=== PATIENT | female | born 1980 | race Caucasian/White ===

== ENCOUNTER 2018-05-24 14:24 | Emergency (ER) | payer BC ==
[~2018-05-24] VITALS: Ht 165.1 cm; Wt 99.8 kg
[~2018-05-24 14:24] MED LIST: ESCI20TA PO; LACT1CAP65 PO; SACC250C PO
--- NOTE | 2018-05-24 14:40 | NUR ---
pt requesting pain medicine before the zofran, because she would throw up zofran,iv, before taking pain med. pt said that dilaudid was given previous time and worked well for her. notified
[2018-05-24] MEDS ORDERED: HYDROMORPHONE 1 MG/1 ML DISP.SYRIN IV ONE (14:45)
[2018-05-24] MEDS ORDERED: IV NORMAL SALINE 1000 ML BAG IV ONE (14:45)
[2018-05-24] MEDS ORDERED: ONDANSETRON 4 MG/2 ML VIAL IV ONE (14:45)
[2018-05-24 14:51] LABS: BASOPHILS # (AUTO) 0.1 K/uL (0.0-8.0); BASOPHILS % (AUTO) 0.3 % (0.0-2.0); EOSINOPHILS % (AUTO) 0.1 % (0.0-7.0); HEMATOCRIT 41.9 % (31.2-41.9); HEMOGLOBIN 14.1 g/dL (10.9-14.3); LYMPHOCYTES # (AUTO) 2.5 K/uL (20.0-40.0); LYMPHOCYTES % (AUTO) 9.5 % (20.5-51.5); MEAN CORPUSCULAR HEMOGLOBIN 27.8 uug (24.7-32.8); MEAN CORPUSCULAR HGB CONC 34 g/dL (32.3-35.6); MEAN CORPUSCULAR VOLUME 82.4 fL (75.5-95.3); MONOCYTES # (AUTO) 1.3 K/uL (2.0-10.0); MONOCYTES % (AUTO) 4.8 % (0.0-11.0); NEUTROPHILS # (AUTO) 22.4 K/uL (1.8-8.9); NEUTROPHILS % (AUTO) 85.3 % (38.5-71.5); PLATELET COUNT (AUTO) 368 K/uL (179-408); RED BLOOD CELL COUNT(AUTO) 5.08 MIL/uL (3.63-4.92)
[2018-05-24 15:03] LABS: CREATININE 0.6 mg/dL (0.6-1.3); POTASSIUM 3.2 mmol/L (3.5-5.1); WHITE BLOOD COUNT (AUTO) 26.3 K/uL (3.8-11.8)
[2018-05-24 15:09] LABS: BILIRUBIN,DIRECT 0.1 mg/dL (0.0-0.2); BILIRUBIN,TOTAL 1.1 mg/dL (0.2-1.0); TOTAL PROTEIN, SERUM 8.8 g/dL (6.4-8.2)
[2018-05-24] MEDS ORDERED: HYDROMORPHONE 2 MG/1 ML DISP.SYRIN ONE (15:24)
[2018-05-24] MEDS ORDERED: ONDANSETRON 4 MG/2 ML VIAL ONE (15:25)
[2018-05-24] MEDS ORDERED: PANTOPRAZOLE SODIUM 40 MG VIAL IV ONE (15:30)
[2018-05-24] MEDS ORDERED: NORMAL SALINE FLUSH 10 ML DISP.SYRIN ONE (15:30)
[2018-05-24] MEDS ORDERED: IOHEXOL 300MG/ML 100 ML INFUS..BTL ONE (15:30)
[2018-05-24] MEDS ORDERED: IV NORMAL SALINE 250 ML IV ONE (15:30)
[2018-05-24] MEDS ORDERED: SWABABLE VALVE TRANSFER SET EA MC ONE (15:30)
[2018-05-24] MEDS ORDERED: PANTOPRAZOLE SODIUM 40 MG VIAL ONE (15:50)
--- NOTE | 2018-05-24 16:25 | NUR ---
Patient discharged to home in stable conditon. Written and verbal after care instructions given. Patient verbalizes understanding of instructions.pt walks in steady gait. pt says feels better.deneis nausea or pain
[2018-05-24 16:26] VITALS: BP 131/89
[2018-05-25] MEDS ORDERED: FAMO-132 PO (07:21)
== END 2018-05-24 16:27 | disposition home or self-care (01) ==
LOC: ER 14:27
DX: R10.13 Epigastric pain (principal); R11.2 Nausea with vomiting, unspecified; D72.829 Elevated white blood cell count, unspecified; F12.10 Cannabis abuse, uncomplicated; Z88.2 Allergy status to sulfonamides
CPT/HCPCS: 36415; 74177; 80048; 80076; 83690; 84703; 85025; 96361; 96374 ×2; 96375; 99285; A4663; C9113; J1170; J2405; J3490; J7050; Q9967; J7030

== ENCOUNTER 2018-05-25 07:09 | Emergency (ER) | payer BC ==
[~2018-05-25] VITALS: Ht 165.1 cm; Wt 99.8 kg
[2018-05-25] MEDS ORDERED: FAMO-132 PO (07:21)
[2018-05-25] MEDS ORDERED: PANTOPRAZOLE SODIUM 40 MG VIAL IV ONE (07:30)
[2018-05-25] MEDS ORDERED: ONDANSETRON 4 MG/2 ML VIAL IV ONE ×2 (07:30→08:30)
[2018-05-25] MEDS ORDERED: HYDROMORPHONE 1 MG/1 ML DISP.SYRIN IV ONE ×2 (07:30→08:30)
[2018-05-25] MEDS ORDERED: IV NORMAL SALINE 1000 ML BAG IV ONE ×2 (07:30→09:00)
[2018-05-25] MEDS ORDERED: ONDANSETRON 4 MG/2 ML VIAL ONE ×2 (07:38→08:45)
[2018-05-25] MEDS ORDERED: HYDROMORPHONE 2 MG/1 ML DISP.SYRIN ONE ×2 (07:38→08:44)
[2018-05-25] MEDS ORDERED: PANTOPRAZOLE SODIUM 40 MG VIAL ONE (07:39)
--- NOTE | 2018-05-25 07:49 | NUR ---
IV PLACED, MEDS ADMIN, 1KL 0.9NS BOLUS INFUSING, ACCU OVOFZ=[id number], DR MAURICIO AWARE.
[2018-05-25] MEDS ORDERED: IBUPROFEN 600 MG TABLET PO ONE (08:00)
[2018-05-25] MEDS ORDERED: IBUPROFEN 600 MG TABLET ONE (08:00)
[2018-05-25] MEDS ORDERED: MAG HYDROX/AL HYDROX/SIMETH 30 ML LIQUID UDC PO ONE (10:30)
[2018-05-25] MEDS ORDERED: MAG HYDROX/AL HYDROX/SIMETH 30 ML LIQUID UDC ONE (10:31)
--- NOTE | 2018-05-25 10:32 | NUR ---
MSE COMPLETED, IV D/C'D INTACT. PT D/XC'D HOME, ACI/RX X2 GIVEN,PT AMBULATED W/O DIFF/TOOK ALL BELONGINGS.
[2018-05-25 10:34] VITALS: BP 140/90
[2018-05-26] MEDS ORDERED: NORT25CA PO (12:56)
== END 2018-05-25 10:35 | disposition home or self-care (01) ==
LOC: ER 07:09
DX: K29.70 Gastritis, unspecified, without bleeding (principal); F12.10 Cannabis abuse, uncomplicated; Z90.49 Acquired absence of other specified parts of digestive tract; Z88.5 Allergy status to narcotic agent
CPT/HCPCS: 82962; 96361; 96374; 96375; 96376; 99284; A4663; C9113; J1170 ×2; J2405 ×2; J7030 ×2

== ENCOUNTER 2018-05-26 10:25 | Inpatient (IN) | payer BC ==
[~2018-05-26] VITALS: Ht 165.1 cm; Wt 99.8 kg
[~2018-05-26 10:25] MED LIST changes: +FAMO-132 PO
[2018-05-26] MEDS ORDERED: ONDANSETRON 4 MG/2 ML VIAL ONE (11:06)
[2018-05-26] MEDS ORDERED: HYDROMORPHONE 2 MG/1 ML DISP.SYRIN ONE (11:06)
[2018-05-26] MEDS ORDERED: ONDANSETRON 4 MG/2 ML VIAL IM ONE (11:15)
[2018-05-26] MEDS ORDERED: HYDROMORPHONE 1 MG/1 ML DISP.SYRIN IM ONE (11:15)
[2018-05-26 11:36] LABS: BASOPHILS % (AUTO) 0.3 % (0.0-2.0); EOSINOPHILS % (AUTO) 0.3 % (0.0-7.0); HEMATOCRIT 37.2 % (31.2-41.9); HEMOGLOBIN 12.5 g/dL (10.9-14.3); LYMPHOCYTES # (AUTO) 2.7 K/uL (20.0-40.0); LYMPHOCYTES % (AUTO) 15.4 % (20.5-51.5); MEAN CORPUSCULAR HEMOGLOBIN 27.3 uug (24.7-32.8); MEAN CORPUSCULAR HGB CONC 34 g/dL (32.3-35.6); MEAN CORPUSCULAR VOLUME 81.1 fL (75.5-95.3); MONOCYTES # (AUTO) 0.9 K/uL (2.0-10.0); MONOCYTES % (AUTO) 5.4 % (0.0-11.0); NEUTROPHILS # (AUTO) 13.6 K/uL (1.8-8.9); NEUTROPHILS % (AUTO) 78.6 % (38.5-71.5); PLATELET COUNT (AUTO) 281 K/uL (179-408); RED BLOOD CELL COUNT(AUTO) 4.58 MIL/uL (3.63-4.92); WHITE BLOOD COUNT (AUTO) 17.3 K/uL (3.8-11.8)
[2018-05-26 11:43] LABS: CARBON DIOXIDE 24 mmol/L (21-32); CHLORIDE 98 mmol/L (98-107); CREATININE 0.5 mg/dL (0.6-1.3); GLUCOSE 175 mg/dL (74-106); UREA NITROGEN, BLOOD 8 mg/dL (7-18)
[2018-05-26 11:44] LABS: POTASSIUM 2.7 mmol/L (3.5-5.1)
[2018-05-26] MEDS ORDERED: PANTOPRAZOLE SODIUM IV 80 MG in IV DEXTROSE 5% 100 ML IV ONE (11:45)
[2018-05-26] MEDS ORDERED: IV NORMAL SALINE 1000 ML BAG IV ONE (11:45)
[2018-05-26 11:57] LABS: ALANINE AMINOTRANSFERASE 25 U/L (14-59); ALKALINE PHOSPHATASE 75 U/L (50-136); ASPARTATE AMINOTRANSFERASE 20 U/L (15-37); BILIRUBIN,DIRECT 0.2 mg/dL (0.0-0.2); BILIRUBIN,TOTAL 1.1 mg/dL (0.2-1.0); LIPASE 131 U/L (73-393); TOTAL PROTEIN, SERUM 7.6 g/dL (6.4-8.2)
[2018-05-26] MEDS ORDERED: PANTOPRAZOLE SODIUM 40 MG VIAL ONE (12:19)
[2018-05-26] MEDS ORDERED: POTASSIUM CHLORIDE 50 ML ONE (12:19)
[2018-05-26] MEDS: POTASSIUM CHLORIDE 50 ML IV SCH ×2 (12:33→12:45)
--- NOTE | 2018-05-26 12:34 | NUR ---
IV PLACED, LAB DELANEY BLOOD EARLIER, IV FLUIDS INFUSING, MRSA NARES ORDERED SENT.
[2018-05-26] MEDS ORDERED: NORT25CA PO (12:56)
--- NOTE | 2018-05-26 13:09 | NUR ---
MSE COMPLETED, ALL MD ORSRS COMPLETED, PT TO RM 221, BELONGINGS LIST DONE.
[2018-05-26] MEDS ORDERED: ONDANSETRON 4 MG/2 ML VIAL IV PRN (13:15)
[2018-05-26] MEDS ORDERED: ACETAMINOPHEN 325 MG TABLET PO PRN (13:15)
[2018-05-26 13:25] VITALS: BP 136/77
--- NOTE | 2018-05-26 13:25 | NUR ---
Admitted 37 y/o female to Tele for Hypokalemia, Intractable Vomiting, and Gastritis. Pt A&O x4. On RA, no SOB noted. SR on Tele, 70s. No acute distress noted. Continent and ambulatory with BRP. No skin issues identified. R hand 22g IV access in place and patent, no s/s of complications noted to site. Denies epigastric pain at this time. Denies nausea at this time. Oriented pt to unit, room, and call light system. Verbalized understanding. Answered all questions. Will monitor closely.
--- NOTE | 2018-05-26 15:00 | NUR ---
Telephone call to pharmacy. Spoke with Corrie to follow up on medication verification. Per Corrie, need to have test results first. Urine specimen sent to lab.
[2018-05-26 15:43] VITALS: BP 119/74
[2018-05-26 15:48] LABS: *URINE HCG, QUAL NEGATIVE (NEGATIVE)
[2018-05-26] MEDS ORDERED: MAGNESIUM SULFATE/D5W 100 ML IV SCH (15:50)
[2018-05-26] MEDS: KETOROLAC TROMETHAMINE 30 MG INJ IVP PRN ×2 (15:58→23:05)
[2018-05-26] MEDS: IV NS 1000 ML 1,000 ML IV PRN ×2 (15:59→22:55)
--- NOTE | 2018-05-26 20:00 | NUR ---
RECEIVED PATIENT AWAKE IN BED. A/O X4. DENIES PAIN OR DISCOMFORT. NO RESP. DISTRESS NOTED. IVF INFUSING WELL TO LEFT FA #20 GAUGE. VS WNL. CALL LIGHT IN REACH. ALL NEEDS ATTENDED, WILL CONTINUE TO MONITOR AND ASSESS.
[2018-05-26 20:10] VITALS: BP 140/83
[2018-05-26] MEDS ORDERED: NORTRIPTYLINE HCL 25 MG CAPSULE PO SCH (21:00)
[2018-05-26] MEDS ORDERED: ESCITALOPRAM OXALATE 10 MG TABLET PO SCH (21:00)
[2018-05-27 01:00] VITALS: BP 139/72
[2018-05-27 04:42] VITALS: BP 137/82
[2018-05-27 06:16] LABS: BASOPHILS % (AUTO) 0.3 % (0.0-2.0); EOSINOPHILS # (AUTO) 0.1 K/uL (0.0-0.7); HEMATOCRIT 34.6 % (31.2-41.9); HEMOGLOBIN 11.8 g/dL (10.9-14.3); LYMPHOCYTES # (AUTO) 2.8 K/uL (20.0-40.0); MEAN CORPUSCULAR HEMOGLOBIN 28.3 uug (24.7-32.8); MEAN CORPUSCULAR HGB CONC 34 g/dL (32.3-35.6); MEAN CORPUSCULAR VOLUME 82.8 fL (75.5-95.3); MONOCYTES # (AUTO) 0.9 K/uL (2.0-10.0); MONOCYTES % (AUTO) 6.8 % (0.0-11.0); NEUTROPHILS # (AUTO) 9.3 K/uL (1.8-8.9); NEUTROPHILS % (AUTO) 70.9 % (38.5-71.5); PLATELET COUNT (AUTO) 243 K/uL (179-408); RED BLOOD CELL COUNT(AUTO) 4.18 MIL/uL (3.63-4.92); WHITE BLOOD COUNT (AUTO) 13.1 K/uL (3.8-11.8)
[2018-05-27] MEDS: IV NS 1000 ML 1,000 ML IV PRN (06:21)
[2018-05-27 06:25] LABS: CARBON DIOXIDE 30 mmol/L (21-32); CHLORIDE 102 mmol/L (98-107); CHOLESTEROL 169 mg/dL (<200); CREATININE 0.5 mg/dL (0.6-1.3); GLUCOSE 130 mg/dL (74-106); HDL CHOLESTEROL 35 mg/dL (40-60); MAGNESIUM 2.3 mg/dL (1.8-2.4); PHOSPHOROUS 3.6 mg/dL (2.5-4.9); TRIGLYCERIDES 148 MG/DL (30-150); UREA NITROGEN, BLOOD 7 mg/dL (7-18)
[2018-05-27 06:27] LABS: POTASSIUM 2.8 mmol/L (3.5-5.1)
--- NOTE | 2018-05-27 06:30 | NUR ---
RECEIVED CRITICAL LAB VALUE OF POTASSIUM 2.8. CALLED OUT TO GLO [employer]OT[employer] EXPERT FOR FURTHER ORDERS. DISPENSING OPERATOR AWARE AND NOTIFIED. WILL CONTINUE TO MONITOR.
[2018-05-27 06:33] LABS: THYROID STIMULATING HORMONE 2.591 mIU/mL (0.358-3.740)
--- NOTE | 2018-05-27 06:35 | NUR ---
RECEIVED NEW ORDERS PER MARGUERITE QUINONEZ. ALL NEEDS ATTENDED.
[2018-05-27] MEDS ORDERED: POTASSIUM CHLORIDE 50 ML IV SCH (06:45)
--- NOTE | 2018-05-27 06:50 | NUR ---
POTASSIUM IV STARTED PER SOLAR ELECTRIC INSTALLER.
[2018-05-27] MEDS ORDERED: PANTOPRAZOLE SODIUM 40 MG VIAL IV SCH (07:00)
--- NOTE | 2018-05-27 07:15 | NUR ---
PATIENT AWAKE IN BED. C/O PAIN FROM IV POTASSIUM. PATIENT IS UNABLE TO TOLERATE. HEPLOCK FLUSHED AND PATENT. ICE APPLIED TO SITE BUT PATIENT STILL COMPLAINING OF PAIN. IV STOPPED AND ENDORSE TO AM RN. PATIENT IS REFUSING IV K+ DUE TO PAIN. WILL CONTINUE TO MONITOR AND NOTIFY MD.
--- NOTE | 2018-05-27 07:45 | NUR ---
RECEIVED PATIENT AWAKE ALERT AND ORIENTED DENIES PAIN OR DISCOMFORTS AT THIS TIME HER IV POTASSIUM STOPPED PATIENT WAS COMPLAINING OF TOO MUCH PAIN WILL INFORM THE DOCTOR.REMAIN ON NORMAL SALINE ORDERED CALL LIGHTS ARE WITHIN EASY REACH AT THIS TIME WILL CONTINUE TO OBSERVE.
--- NOTE | 2018-05-27 09:31 | NUR ---
CALL RECEIVED FROM DR OATES WITH ORDER TO GIVE THE POTASSIUM 30 MEQ WITH LIDOCAINE AND NOTED.
[2018-05-27] MEDS: POTASSIUM CHLORIDE 10 MEQ, LIDOCAINE-MPF 1% 1 ML in IV DEXTROSE 5% 100 ML IV SCH ×3 (10:20→12:18)
--- NOTE | 2018-05-27 10:55 | NUR ---
PATIENT CALLED ME AND COMPLAINED OF HAVING SOME PAIN ASSOCIATED WITH THE POTASSIUM INFUSSION ICE COMPRESS APPLIED AND WITHIN 30 SECONDS PATIENT EXPRESSED SOME RELIEF STATED STILL HURTS BUT LESS NOW WITH THE ICE WILL CONTINUE TO OBSERVE.
--- NOTE | 2018-05-27 11:33 | NUR ---
IV POTASSIUM REMAIN IN PROGRESS ORDERED AND PATIENT IS TOLERATING FAIR.SHE WAS SEEN BY DR OATES WITH ORDER TO ADVANCE HER DIET TO REGULAR AND IF TOLERATED WELL MAY BE DISCHARGED LATER THIS EVENING PATIENT IS AWARE AND EXPRESSED UNDERSTANDING.
[2018-05-27] MEDS ORDERED: PANT40TA2 PO (11:38)
[2018-05-27 11:55] VITALS: BP 143/87
[2018-05-27 11:59] VITALS: BP 142/95
--- NOTE | 2018-05-27 13:30 | NUR ---
PATIENT IS BEING PREPPED FOR DISCHARGE TOLERATED POTASSIUM ORDERED STATED THAT HER DAD WILL PICK HER UP TODAY
--- NOTE | 2018-05-27 14:00 | NUR ---
ATE REGULAR DIET ORDERED TOLERATED 25 PERCENT STATED DOES NOT FEEL NAUSEA WANTS TO TAKE IT REAL EASY DENIES PAIN AFTER EATING.
--- NOTE | 2018-05-27 14:55 | NUR ---
PATIENT DISCHARGED PICKED UP BY HER DAD JULIO IN SATISFACTORY CONDITION WITH DISCHARGE INSTRUCTIONS AND PRESCRIPTIONS PATIENT STATED DID NOT NEED PHARMACY EDUCATION BECAUSE SHE TOOK PROTONIC BEFORE ALSO STATED WILL CALL HER REGULAR PHYSICIAN DR WHALEN TOMORROW TO MAKE A FOLLOW UP APPOINTMENT DECLINED FOR ME TO CALL HIM TODAY STATED HIS OFFICE IS NOT OPEN ON SUNDAYS.
== END 2018-05-27 14:55 | disposition home or self-care (01) | DRG 640 ==
LOC: ER 10:25 → TELE 12:58 → MED 05-27 11:22
DX: E87.6 Hypokalemia (principal); K29.01 Acute gastritis with bleeding; K27.4 Chronic or unspecified peptic ulcer, site unspecified, with hemorrhage; E66.9 Obesity, unspecified; Z68.36 Body mass index [BMI] 36.0-36.9, adult; E28.2 Polycystic ovarian syndrome; Z88.6 Allergy status to analgesic agent; Z90.49 Acquired absence of other specified parts of digestive tract; E11.9 Type 2 diabetes mellitus without complications; E83.42 Hypomagnesemia; Z98.890 Other specified postprocedural states; F17.210 Nicotine dependence, cigarettes, uncomplicated; F32.9 Major depressive disorder, single episode, unspecified; Z79.899 Other long term (current) drug therapy
CPT/HCPCS: 36415; 71045; 83690; 83735; 84100; 84443; 84703; 85025; 93005; A4663; C9113; J1170; J1885; J2001; J2405; J3475; J3480; J3490; J7030; J7060

== ENCOUNTER 2018-06-30 06:09 | Emergency (ER) | payer BC ==
[~2018-06-30] VITALS: Ht 165.1 cm; Wt 99.8 kg
[~2018-06-30 06:09] MED LIST changes: -FAMO-132 PO; -LACT1CAP65 PO; +NORT25CA PO; +PANT40TA2 PO
--- NOTE | 2018-06-30 06:39 | NUR ---
PATIENT FROM HOME,AAOX4/MAEX4. COMPLAINING OF N/V AND DIARRHEA , PER PATIENT SINCE 0700 YESTERDAY SHE HAD A TOTAL OF 7 LOOSE TO WATERY BM .VERBALIZED ABDOMINAL PAIN 10 OVER 10.CONNECTED TO MONITOR AND V/S DONE . NO RESPIRATORY DISTRESS NOTED ON ROOM AIR BREATHING EVEN AND UNLABORED, HOB UP . SATURATION 97% .BP 137/83,HR 87.
--- NOTE | 2018-06-30 06:55 | NUR ---
DOCTOR MAURICIO AT BEDSIDE .SBAR REPORT GIVEN TO BENNIE CARVER
--- NOTE | 2018-06-30 06:58 | NUR ---
DOCTOR: HANG EXAMINED AND SPOKED WITH PATIENT PER PATIENT SHE's NOT ALLERGIC TO MORPHINE ,MORPHINE ALLERGY D/C PER DOCTOR HANG .
[2018-06-30] MEDS ORDERED: IV NORMAL SALINE 1000 ML BAG IV ONE ×2 (07:00→08:00)
[2018-06-30] MEDS ORDERED: ONDANSETRON 4 MG/2 ML VIAL IV ONE (07:00)
[2018-06-30] MEDS ORDERED: PANTOPRAZOLE SODIUM 40 MG VIAL IV ONE (07:00)
[2018-06-30] MEDS ORDERED: MORPHINE SULFATE 2 MG/1 ML DISP.SYRIN IV ONE (07:00)
[2018-06-30] MEDS ORDERED: MORPHINE SULFATE 4 MG/1 ML DISP.SYRIN ONE ×2 (07:03→08:00)
[2018-06-30] MEDS ORDERED: PANTOPRAZOLE SODIUM 40 MG VIAL ONE (07:04)
[2018-06-30] MEDS ORDERED: ONDANSETRON 4 MG/2 ML VIAL ONE (07:04)
[2018-06-30 07:37] LABS: BASOPHILS % (AUTO) 0.2 % (0.0-2.0); HEMATOCRIT 37.1 % (31.2-41.9); HEMOGLOBIN 12.8 g/dL (10.9-14.3); LYMPHOCYTES % (AUTO) 8.9 % (20.5-51.5); MEAN CORPUSCULAR HEMOGLOBIN 28.3 uug (24.7-32.8); MEAN CORPUSCULAR HGB CONC 35 g/dL (32.3-35.6); MEAN CORPUSCULAR VOLUME 82.1 fL (75.5-95.3); MONOCYTES # (AUTO) 1.4 K/uL (2.0-10.0); MONOCYTES % (AUTO) 6.3 % (0.0-11.0); NEUTROPHILS # (AUTO) 18.6 K/uL (1.8-8.9); NEUTROPHILS % (AUTO) 84.6 % (38.5-71.5); PLATELET COUNT (AUTO) 310 K/uL (179-408); RED BLOOD CELL COUNT(AUTO) 4.52 MIL/uL (3.63-4.92)
[2018-06-30 07:43] LABS: CREATININE 0.7 mg/dL (0.6-1.3)
[2018-06-30 07:44] LABS: POTASSIUM 2.8 mmol/L (3.5-5.1)
[2018-06-30 07:48] LABS: BAND % (MANUAL) 4 % (0-10); LYMPHOCYTES % (MANUAL) 10 % (20-40); MONOCYTES % (MANUAL) 5 % (2-10); NEUTROPHILS % (MANUAL) 81 % (42-75)
[2018-06-30 07:49] LABS: BILIRUBIN,DIRECT 0.1 mg/dL (0.0-0.2); BILIRUBIN,TOTAL 0.7 mg/dL (0.2-1.0); TOTAL PROTEIN, SERUM 8.2 g/dL (6.4-8.2)
[2018-06-30] MEDS ORDERED: POTASSIUM CHLORIDE 50 ML IV SCH (08:00)
[2018-06-30] MEDS ORDERED: POTASSIUM CHLORIDE 50 ML ONE (08:00)
[2018-06-30] MEDS ORDERED: MORPHINE SULFATE 4 MG/1 ML DISP.SYRIN IV ONE (08:00)
[2018-06-30 08:13] LABS: *URINE HCG, QUAL NEGATIVE (NEGATIVE)
--- NOTE | 2018-06-30 09:30 | NUR ---
PT WAS D/C TO HOME. D/C INSTRUCTIONS GIVEN TO THE PT.
[2018-06-30 09:31] VITALS: BP 139/82
== END 2018-06-30 09:32 | disposition home or self-care (01) ==
LOC: ER 06:11
DX: K29.70 Gastritis, unspecified, without bleeding (principal); E86.0 Dehydration; E87.6 Hypokalemia; E11.9 Type 2 diabetes mellitus without complications; F12.10 Cannabis abuse, uncomplicated; Z88.5 Allergy status to narcotic agent
CPT/HCPCS: 36415; 80048; 80076; 83690; 84703; 85025; 96361; 96365; 96375; 96376; 99284; A4663; C9113; J2270 ×2; J2405; J3480; J7030

== ENCOUNTER 2018-07-01 14:13 | Inpatient (IN) | payer BC ==
[~2018-07-01] VITALS: Ht 165.1 cm; Wt 104.4 kg
[2018-07-01] MEDS ORDERED: ONDANSETRON ODT 4 MG TAB.RAPDIS ONE (14:51)
[2018-07-01] MEDS ORDERED: PANTOPRAZOLE SODIUM 40 MG VIAL IV ONE (15:00)
[2018-07-01] MEDS ORDERED: ONDANSETRON ODT 4 MG TAB.RAPDIS SL ONE (15:00)
[2018-07-01] MEDS ORDERED: MORPHINE SULFATE 2 MG/1 ML DISP.SYRIN IV ONE (15:00)
[2018-07-01] MEDS ORDERED: diphenhydrAMINE 50 MG/1 ML VIAL IV ONE (15:00)
[2018-07-01] MEDS ORDERED: IV NORMAL SALINE 1000 ML BAG IV ONE (15:00)
[2018-07-01] MEDS ORDERED: METOCLOPRAMIDE HCL 10 MG/2 ML VIAL IV ONE (15:00)
[2018-07-01] MEDS ORDERED: METOCLOPRAMIDE HCL 10 MG/2 ML VIAL ONE (15:07)
[2018-07-01] MEDS ORDERED: diphenhydrAMINE 50 MG/1 ML VIAL ONE (15:07)
[2018-07-01] MEDS ORDERED: MORPHINE SULFATE 4 MG/1 ML DISP.SYRIN ONE ×2 (15:07→15:51)
[2018-07-01] MEDS ORDERED: PANTOPRAZOLE SODIUM 40 MG VIAL ONE (15:08)
[2018-07-01 15:15] LABS: BASOPHILS # (AUTO) 0.1 K/uL (0.0-8.0); BASOPHILS % (AUTO) 0.7 % (0.0-2.0); EOSINOPHILS # (AUTO) 0.1 K/uL (0.0-0.7); EOSINOPHILS % (AUTO) 0.4 % (0.0-7.0); HEMATOCRIT 39.3 % (31.2-41.9); HEMOGLOBIN 13.7 g/dL (10.9-14.3); LYMPHOCYTES % (AUTO) 13.1 % (20.5-51.5); MEAN CORPUSCULAR HEMOGLOBIN 28.6 uug (24.7-32.8); MEAN CORPUSCULAR HGB CONC 35 g/dL (32.3-35.6); MEAN CORPUSCULAR VOLUME 82.1 fL (75.5-95.3); MONOCYTES # (AUTO) 0.8 K/uL (2.0-10.0); MONOCYTES % (AUTO) 5.2 % (0.0-11.0); NEUTROPHILS # (AUTO) 12.4 K/uL (1.8-8.9); NEUTROPHILS % (AUTO) 80.6 % (38.5-71.5); PLATELET COUNT (AUTO) 298 K/uL (179-408); RED BLOOD CELL COUNT(AUTO) 4.79 MIL/uL (3.63-4.92); WHITE BLOOD COUNT (AUTO) 15.4 K/uL (3.8-11.8)
[2018-07-01 15:22] LABS: CREATININE 0.7 mg/dL (0.6-1.3)
[2018-07-01 15:28] LABS: BILIRUBIN,DIRECT 0.1 mg/dL (0.0-0.2); BILIRUBIN,TOTAL 0.8 mg/dL (0.2-1.0); TOTAL PROTEIN, SERUM 8.3 g/dL (6.4-8.2)
[2018-07-01] MEDS ORDERED: MORPHINE SULFATE 4 MG/1 ML DISP.SYRIN IV ONE (15:45)
[2018-07-01] MEDS ORDERED: ONDANSETRON 4 MG/2 ML VIAL ONE (15:51)
[2018-07-01] MEDS ORDERED: LIDOCAINE VISCUS 2% 15 ML UDC MM ONE (17:00)
[2018-07-01] MEDS ORDERED: MAG HYDROX/AL HYDROX/SIMETH 30 ML LIQUID UDC PO ONE (17:00)
[2018-07-01] MEDS ORDERED: MAG HYDROX/AL HYDROX/SIMETH 30 ML LIQUID UDC ONE (17:06)
[2018-07-01] MEDS ORDERED: LIDOCAINE VISCUS 2% 15 ML UDC ONE (17:06)
--- NOTE | 2018-07-01 17:48 | NUR ---
Pt. admitted to [facility], under care of Eric Garcia Belongs List completed
[2018-07-01] MEDS ORDERED: HYDROCODONE/APAP 10-325 MG TABLET PO PRN (18:00)
[2018-07-01] MEDS ORDERED: ZOLPIDEM 5 MG TABLET PO PRN (18:00)
[2018-07-01] MEDS ORDERED: MORPHINE SULFATE 2 MG/1 ML DISP.SYRIN IV PRN (18:00)
[2018-07-01] MEDS ORDERED: MAGNESIUM HYDROXIDE 30 ML LIQUID UDC PO PRN (18:00)
[2018-07-01] MEDS ORDERED: ACETAMINOPHEN 325 MG TABLET PO PRN (18:00)
[2018-07-01 18:08] VITALS: BP 172/98
--- NOTE | 2018-07-01 18:25 | NUR ---
RECEIVED PT FROM ER, A CASE OF ABD PAIN, ANXIOUS , ALERT ORIENTED X3, BREATHING SPONTANEOUSLY . HAS A RT ARM AC IV LINE G20. PT CAN MOVE INDEPENDENTLY, PT PUT IN BED AND BELONGINGS SHEET FILLED OUT. AWAITING ORDERS.
[2018-07-01] MEDS: OXYCODONE/APAP 5-325 MG TABLET PO PRN (19:07)
[2018-07-01] MEDS: IV NS 1000 ML 1,000 ML IV PRN (19:07)
--- NOTE | 2018-07-01 19:20 | NUR ---
RECEIVED PT AWAKE, ALERT, AND ORIENTEDX3. PT ANXIOUS. PT SHOWS NO SIGNS OF ACUTE DISTRESS. PT VITAL SIGNS WITHIN NORMAL LIMIT. CALL LIGHT WITHIN REACH. BED ALARM ON. SAFETY AND COMFORT PROVIDED. WILL CONTINUE TO MONITOR.
[2018-07-01] MEDS: POTASSIUM CHLORIDE 50 ML IV SCH ×4 (19:47→21:31)
[2018-07-01 20:30] VITALS: BP 171/95
[2018-07-01] MEDS: MORPHINE SULFATE 4 MG/1 ML DISP.SYRIN IV PRN (20:55)
[2018-07-01] MEDS: TRAZODONE 50 MG TABLET PO PRN (23:58)
[2018-07-02] MEDS ORDERED: POTASSIUM CHLORIDE 10 MEQ TAB.PRT.SR PO ONE
[2018-07-02] MEDS: MORPHINE SULFATE 4 MG/1 ML DISP.SYRIN IV PRN ×2 (00:55→05:47)
[2018-07-02 01:16] VITALS: BP 143/98
[2018-07-02 05:32] VITALS: BP 119/56
[2018-07-02] MEDS: IV NS 1000 ML 1,000 ML IV PRN ×2 (05:51→16:37)
[2018-07-02] MEDS: PANTOPRAZOLE SODIUM 40 MG VIAL IV SCH (06:01)
[2018-07-02] MEDS: ONDANSETRON 4 MG/2 ML VIAL IV PRN ×3 (06:05→23:03)
[2018-07-02 06:06] LABS: BASOPHILS % (AUTO) 0.2 % (0.0-2.0); EOSINOPHILS # (AUTO) 0.1 K/uL (0.0-0.7); EOSINOPHILS % (AUTO) 0.5 % (0.0-7.0); LYMPHOCYTES # (AUTO) 3.9 K/uL (20.0-40.0); LYMPHOCYTES % (AUTO) 25.2 % (20.5-51.5); MEAN CORPUSCULAR HEMOGLOBIN 28.3 uug (24.7-32.8); MEAN CORPUSCULAR HGB CONC 35 g/dL (32.3-35.6); MONOCYTES # (AUTO) 1.2 K/uL (2.0-10.0); MONOCYTES % (AUTO) 7.6 % (0.0-11.0); NEUTROPHILS # (AUTO) 10.2 K/uL (1.8-8.9); NEUTROPHILS % (AUTO) 66.5 % (38.5-71.5); PLATELET COUNT (AUTO) 276 K/uL (179-408); WHITE BLOOD COUNT (AUTO) 15.4 K/uL (3.8-11.8)
[2018-07-02 06:20] LABS: CARBON DIOXIDE 31 mmol/L (21-32); CHLORIDE 100 mmol/L (98-107); CREATININE 0.5 mg/dL (0.6-1.3); GLUCOSE 119 mg/dL (74-106); LIPASE 189 U/L (73-393); MAGNESIUM 1.6 mg/dL (1.8-2.4); PHOSPHOROUS 4.1 mg/dL (2.5-4.9); UREA NITROGEN, BLOOD 10 mg/dL (7-18)
[2018-07-02 06:43] LABS: HEMOGLOBIN 11.9 g/dL (10.9-14.3)
[2018-07-02 06:44] LABS: HEMATOCRIT 34.4 % (31.2-41.9)
--- NOTE | 2018-07-02 06:45 | NUR ---
PT SLEPT THROUGHOUT THE SHIFT. PT SHOWS NO SIGNS OF DISTRESS. PT IV INTACT. PRESCRIBED MEDICATION GIVEN AND PT TOLERATED IT WELL. PT WAS GIVEN MORPHINE AT 2055H AND 0055H AND 0547HFOR 8/10 PAIN ON HER ABDOMEN.PT HAD IMPROVE CONDITION AFTER GIVING PAIN MEDICATION. CALL LIGHT WITHIN REACH. SAFETY AND COMFORT PROVIDED.ALL NEEEDS ARE MET. WILL ENDORSE TO INCOMING NURSE FOR CONTINUITY OF CARE.
[2018-07-02 07:05] LABS: POTASSIUM 2.9 mmol/L (3.5-5.1)
--- NOTE | 2018-07-02 07:20 | NUR ---
RECEIVED PATIENT IN ROOM AWAKE AAOX4 NO ACUTE DISTRESS NOTED PT CRYING AND ANXIOUS, COMPLAINING OF SEVERE PAIN ON ABDOMEN, REQUESTING DILAUDID. ON NPO. GI CONSULT TODAY. PROVIDED NURSING INTERVENTIONS TO HELP ALLEVIATE ANXIETY/PAIN. WILL INFORM MONIKA FEATHER MIXER. COMFORT MEASURES PROVIDED. CALL LIGHT WITHIN REACH.
[2018-07-02] MEDS: OXYCODONE/APAP 5-325 MG TABLET PO PRN (07:37)
[2018-07-02] MEDS ORDERED: MAGNESIUM SULFATE/D5W 100 ML IV SCH (11:45)
[2018-07-02] MEDS ORDERED: POTASSIUM CHLORIDE 20 MEQ TAB.PRT.SR PO ONE (11:45)
[2018-07-02 11:52] VITALS: BP 104/58
[2018-07-02] MEDS: HYDROMORPHONE 1 MG/1 ML DISP.SYRIN IV PRN ×2 (12:26→20:56)
[2018-07-02 15:57] VITALS: BP 121/62
--- NOTE | 2018-07-02 19:00 | NUR ---
PATIENT IN ROOM AWAKE IN STABLE CONDITION IVF INFUSING WELL. NO COMPLAINTS OF ABD PAIN AT THIS TIME/ SEEN AND EXAMINED BY IRAIS QUINONEZ. ALL NEEDS ATTENDED AND ANTICIPATED. CALL LIGHT WITHIN REACH.
[2018-07-02 20:00] VITALS: BP 146/86
--- NOTE | 2018-07-02 20:00 | NUR ---
Received patient laying comfortably in bed. A/O x 4. C/o upper abd pain. On room air. IVF infusing on the left AC. Skin is intact. Ambulatory with minimal assist. Safety initiated. Call light within reach.
[2018-07-02 20:15] LABS: *BLOOD, URINE 3+ (NEGATIVE); *CLARITY,URINE CLOUDY (CLEAR); *COLOR,URINE RED (YELLOW); *KETONES,URINE NEGATIVE (NEGATIVE); *UROBILINOGEN,URINE 0.2 E.U./dl (NORMAL); LEUKOCYTE ESTERASE ,URINE TRACE (NEGATIVE); NITRITE, URINE NEGATIVE (NEGATIVE); PH,URINE 6.5 (5.0-8.0); UGLUCOSE NEGATIVE (NEGATIVE)
[2018-07-02 20:17] LABS: *URINE HCG, QUAL NEGATIVE (NEGATIVE)
[2018-07-02 20:18] LABS: *BILIRUBIN,URIN 1+ (NEGATIVE); *PROTEIN,URINE 3+ (NEGATIVE)
[2018-07-02 20:20] LABS: BACTERIA,URINE RARE /HPF (NONE SEEN); RBC,URINE TNTC /HPF (0-3); SQUAMOUS EPITHELIAL CELL,UR FEW /HPF (NONE SEEN)
[2018-07-02] MEDS: TRAZODONE 50 MG TABLET PO PRN (22:08)
[2018-07-03] MEDS: HYDROMORPHONE 1 MG/1 ML DISP.SYRIN IV PRN ×3 (03:07→15:02)
[2018-07-03] MEDS: IV NS 1000 ML 1,000 ML IV PRN (03:07)
--- NOTE | 2018-07-03 05:13 | NUR ---
Patient slept intermittently t/o shift. C/o upper abdomen pain. Medication given. Stated relief. Maintained NPO since midnight. Skin remains intact. Good urine output. IVF still infusing. Vital signs stable. Safety and comfort measures maintained t/o shift. All meds given as ordered. All needs met.
[2018-07-03 05:45] VITALS: BP 120/68
[2018-07-03] MEDS: PANTOPRAZOLE SODIUM 40 MG VIAL IV SCH (06:01)
[2018-07-03 07:26] LABS: BASOPHILS % (AUTO) 0.3 % (0.0-2.0); EOSINOPHILS # (AUTO) 0.1 K/uL (0.0-0.7); EOSINOPHILS % (AUTO) 0.8 % (0.0-7.0); HEMATOCRIT 33.7 % (31.2-41.9); HEMOGLOBIN 11.6 g/dL (10.9-14.3); LYMPHOCYTES # (AUTO) 2.7 K/uL (20.0-40.0); LYMPHOCYTES % (AUTO) 23.8 % (20.5-51.5); MEAN CORPUSCULAR HEMOGLOBIN 28.5 uug (24.7-32.8); MEAN CORPUSCULAR HGB CONC 34 g/dL (32.3-35.6); MEAN CORPUSCULAR VOLUME 82.8 fL (75.5-95.3); MONOCYTES # (AUTO) 0.7 K/uL (2.0-10.0); MONOCYTES % (AUTO) 6.5 % (0.0-11.0); NEUTROPHILS # (AUTO) 7.9 K/uL (1.8-8.9); NEUTROPHILS % (AUTO) 68.6 % (38.5-71.5); PLATELET COUNT (AUTO) 241 K/uL (179-408); RED BLOOD CELL COUNT(AUTO) 4.06 MIL/uL (3.63-4.92); WHITE BLOOD COUNT (AUTO) 11.5 K/uL (3.8-11.8)
[2018-07-03 07:38] LABS: CREATININE 0.6 mg/dL (0.6-1.3); POTASSIUM 2.9 mmol/L (3.5-5.1)
--- NOTE | 2018-07-03 08:00 | NUR ---
AWAKE ALERT NPO FOR EGD THIA AM CONTINUE IVF INFUSION WELL LAC NO PAIN OR N/V AT THIS TIME RESTING WELL WITH CALL LIGHT IN REACH
--- NOTE | 2018-07-03 08:45 | NUR ---
Marsha GUZMAN WAS NOTIFY OF K+WAS 2.9 THIS AM AND MESSAGE LEFT
[2018-07-03 08:48] VITALS: BP 168/90
[2018-07-03] MEDS: ONDANSETRON 4 MG/2 ML VIAL IV PRN (08:56)
--- NOTE | 2018-07-03 09:30 | NUR ---
KCL IVPB GIVEN ORDER SURESH WELL ICE PK APPLY AT IV SITE REQUEST NPO FOR EDG THIS AM CONDENT SIGNS AND CHECK LIST COMPLETE
[2018-07-03] MEDS: POTASSIUM CHLORIDE 10 MEQ, LIDOCAINE-MPF 1% 1 ML in IV DEXTROSE 5% 100 ML IV SCH ×4 (09:34→15:41)
--- NOTE | 2018-07-03 10:25 | NUR ---
TO GI LAB VIA BED CONDITION STABLE NO PAIN OR N/V AT THIS TIME
[2018-07-03 11:30] VITALS: BP 133/76
--- NOTE | 2018-07-03 11:30 | NUR ---
BACK FROM GI LAB ALERT AWAKE NO N/V OR PAIN VS TAKEN STABLE START ON REGULAR DIET AT LUNCH
[2018-07-03] MEDS ORDERED: OMEP20TA20 PO (12:25)
--- NOTE | 2018-07-03 13:00 | NUR ---
EAT LUNCH MOD AMT NO N/V OR PAIN AT THIS TIME
[2018-07-03 15:29] VITALS: BP 125/66
--- NOTE | 2018-07-03 15:30 | NUR ---
D/C INSTRUCTION REGARDING TO F/U WITH OWN PMD CONTINUE HOME MEDICINE PRECRIPTION /ORDER EDUCATION PK GAVE ,VERBALIZES UNDERSTAND AND SIGNS D/C SHEET HL WILL D/C PRIOR D/C HOME TODAY
--- NOTE | 2018-07-03 15:45 | NUR ---
PHAEH WAS HERE AND EXPLAINED ALL HOME MED AND PRECRIPTION ,VERBALIZES UNDERSTAND AND D/C PK WITH PRECNATALIE GIVEN TO PATIENT
--- NOTE | 2018-07-03 17:00 | NUR ---
IV KCL COMPLETE AND HL IV DISCONTINUE PRIOR TODAY NO PAIN EAT DINNER WELL NO N/V
--- NOTE | 2018-07-03 17:30 | NUR ---
D/C HOME WITH HER BELONGING CONDITION STABLE ACCOMPANIES WITH MOTHER
== END 2018-07-03 17:30 | disposition home or self-care (01) | DRG 392 ==
LOC: ER 14:13 → MED 17:38
PROVIDERS: ADMIT Nurse Practitioner Acute Care; ATTEND Nurse Practitioner Acute Care
PROC: 0DB78ZX Excision of Stomach, Pylorus, Via Natural or Artificial Opening Endoscopic, Diagnostic (ICD-10-PCS; principal; 2018-07-03 10:39)
DX: K29.70 Gastritis, unspecified, without bleeding (principal); Z90.49 Acquired absence of other specified parts of digestive tract; K76.0 Fatty (change of) liver, not elsewhere classified; E83.42 Hypomagnesemia; E87.6 Hypokalemia; K27.9 Peptic ulcer, site unspecified, unspecified as acute or chronic, without hemorrhage or perforation; K21.9 Gastro-esophageal reflux disease without esophagitis; F32.9 Major depressive disorder, single episode, unspecified; G89.29 Other chronic pain; K21.0 Gastro-esophageal reflux disease with esophagitis; Z79.899 Other long term (current) drug therapy; E28.2 Polycystic ovarian syndrome; Z68.38 Body mass index [BMI] 38.0-38.9, adult; E11.9 Type 2 diabetes mellitus without complications; E66.01 Morbid (severe) obesity due to excess calories; D72.829 Elevated white blood cell count, unspecified
CPT/HCPCS: 36415; 76705; 83690; 83735; 84100; 84703; 85025; 85730; 88342; A4217; A4663; C9113; J1170; J1200; J2001; J2270; J2405; J2765; J3475; J3480; J7030; J7060; Q0162

== ENCOUNTER 2018-08-08 00:05 | Emergency (ER) | payer BC ==
[~2018-08-08] VITALS: Ht 165.1 cm; Wt 81.6 kg
[~2018-08-08 00:05] MED LIST changes: +OMEP20TA20 PO; -PANT40TA2 PO
--- NOTE | 2018-08-08 00:09 | NUR ---
PT A/OX4, RESPONSIVE TO VERBAL AND TACTILE STIMULI. PT C/O C/P THAT STARTED ABOUT 2 HOURS AGO, PROVOKED UPON DEEP RESPIRATIONS, SHARP IN QUALITY, RADIATES AROUND THE L BREAST, 05/18, CONSTANT. VS WNL. SECONDARY COMPLAINT: N/V X 9 YESTERDAY (08/07/18). PER PT, SHE WAS SEEN AT ANOTHER ER YESTERDAY FOR THE SAME COMPLAINT AND WAS DIAGNOSED W/ PANIC ATTACK. PT DENIES SOB, DIZZINESS, HEADACHE.
--- NOTE | 2018-08-08 00:12 | NUR ---
LAZARO HYDE AT BEDSIDE FOR MSE.
[2018-08-08] MEDS ORDERED: METOCLOPRAMIDE HCL 10 MG/2 ML VIAL IV ONE (00:15)
[2018-08-08] MEDS ORDERED: diphenhydrAMINE 25 MG CAP PO ONE ×2 (00:15→00:24)
[2018-08-08] MEDS ORDERED: IV NORMAL SALINE 1000 ML BAG IV ONE (00:15)
[2018-08-08] MEDS ORDERED: ONDANSETRON 4 MG/2 ML VIAL IV ONE (00:15)
[2018-08-08] MEDS ORDERED: METOCLOPRAMIDE HCL 10 MG/2 ML VIAL ONE (00:24)
[2018-08-08] MEDS ORDERED: ONDANSETRON 4 MG/2 ML VIAL ONE (00:24)
[2018-08-08 00:33] LABS: BASOPHILS % (AUTO) 0.1 % (0.0-2.0); EOSINOPHILS % (AUTO) 0.1 % (0.0-7.0); HEMATOCRIT 38.2 % (31.2-41.9); HEMOGLOBIN 13.2 g/dL (10.9-14.3); LYMPHOCYTES # (AUTO) 2.1 K/uL (20.0-40.0); LYMPHOCYTES % (AUTO) 10.7 % (20.5-51.5); MEAN CORPUSCULAR HEMOGLOBIN 27.5 uug (24.7-32.8); MEAN CORPUSCULAR HGB CONC 35 g/dL (32.3-35.6); MEAN CORPUSCULAR VOLUME 79.4 fL (75.5-95.3); NEUTROPHILS # (AUTO) 16.6 K/uL (1.8-8.9); NEUTROPHILS % (AUTO) 84.1 % (38.5-71.5); PLATELET COUNT (AUTO) 387 K/uL (179-408); WHITE BLOOD COUNT (AUTO) 19.8 K/uL (3.8-11.8)
[2018-08-08] MEDS ORDERED: KETOROLAC TROMETHAMINE 30 MG INJ ONE (00:38)
[2018-08-08 00:39] LABS: CREATININE 0.6 mg/dL (0.6-1.3); POTASSIUM 3.1 mmol/L (3.5-5.1)
[2018-08-08 00:44] LABS: BILIRUBIN,DIRECT 0.1 mg/dL (0.0-0.2); BILIRUBIN,TOTAL 0.8 mg/dL (0.2-1.0); TOTAL PROTEIN, SERUM 8.5 g/dL (6.4-8.2)
[2018-08-08] MEDS ORDERED: KETOROLAC TROMETHAMINE 30 MG INJ IVP ONE (00:45)
--- NOTE | 2018-08-08 02:09 | NUR ---
Patient discharged to home in stable conditon. Written and verbal after care instructions given. Patient verbalizes understanding of instructions. PT D/C HOME W/ PRESCRIPTION. ALL BELONGINGS W/ PT. PT SELF-AMBULATED WITHOUT DIFFICULTY. 20G L AC IV ACCESS REMOVED PRIOR TO D/C - INNER CANNULA INTACT.
[2018-08-08 02:10] VITALS: BP 154/86
== END 2018-08-08 02:10 | disposition home or self-care (01) ==
LOC: ER 00:09
DX: R07.89 Other chest pain (principal); E11.9 Type 2 diabetes mellitus without complications; F12.10 Cannabis abuse, uncomplicated; Z88.5 Allergy status to narcotic agent
CPT/HCPCS: 36415; 80048; 80076; 83690; 84484; 85025; 93005; 96374; 96375; 99285; J1885; J2405; J2765; Q0163; 70030-TC; A4663; J7030

== ENCOUNTER 2018-08-08 13:13 | Emergency (ER) | payer BC ==
[~2018-08-08] VITALS: Ht 165.1 cm; Wt 104.3 kg
[2018-08-08] MEDS ORDERED: ONDANSETRON IV *ER 4 MG/2 ML VIAL IV ONE (13:45)
[2018-08-08] MEDS ORDERED: LORAZEPAM 2 MG/1 ML VIAL IV ONE (13:45)
[2018-08-08] MEDS ORDERED: KETOROLAC TROMETHAMINE 15 MG INJ IVP ONE (13:45)
[2018-08-08] MEDS ORDERED: IV NORMAL SALINE 1000 ML BAG IV ONE (13:45)
[2018-08-08] MEDS ORDERED: ONDANSETRON 4 MG/2 ML VIAL ONE (13:58)
[2018-08-08] MEDS ORDERED: KETOROLAC TROMETHAMINE 15 MG INJ ONE (13:58)
[2018-08-08] MEDS ORDERED: LORAZEPAM 2 MG/1 ML VIAL ONE (13:58)
--- NOTE | 2018-08-08 14:04 | NUR ---
Lindsay alcocer in EDM - 08/08/[address] at [address] mcrae called dr. daniela garibay at [phone] and left a message with psychiatric secretary.
[2018-08-08] MEDS ORDERED: FAMOTIDINE. 20 MG/2 ML VIAL IV ONE ×2 (14:45→14:48)
--- NOTE | 2018-08-08 15:11 | NUR ---
Patient discharged to home in stable conditon. Written and verbal after care instructions given. Patient verbalizes understanding of instructions.pt walks in steady gait. pt not driving
[2018-08-08 15:12] VITALS: BP 149/88
== END 2018-08-08 15:15 | disposition home or self-care (01) ==
LOC: ER 13:14
DX: F41.9 Anxiety disorder, unspecified (principal); R07.89 Other chest pain; K29.70 Gastritis, unspecified, without bleeding; E11.9 Type 2 diabetes mellitus without complications; F12.10 Cannabis abuse, uncomplicated; Z88.5 Allergy status to narcotic agent
CPT/HCPCS: 96361; 96374; 96375; 99284; J1885; J2060; J2405; J3490; A4663; J7030

== ENCOUNTER 2018-08-09 17:30 | Emergency (ER) | payer BC ==
[~2018-08-09] VITALS: Ht 165.1 cm; Wt 104.3 kg
[2018-08-09] MEDS ORDERED: ONDANSETRON ODT 4 MG TAB.RAPDIS ONE (18:53)
[2018-08-09] MEDS ORDERED: LORAZEPAM 1 MG TABLET ONE (18:54)
[2018-08-09] MEDS ORDERED: KETOROLAC TROMETHAMINE 60 MG INJ IM ONE ×2 (18:54→19:00)
--- NOTE | 2018-08-09 18:59 | NUR ---
Patient discharged to home in stable conditon. Written and verbal after care instructions given. Patient verbalizes understanding of instructions.pt walks in steady gait. pt not driving. pt says ready to go home
[2018-08-09] MEDS ORDERED: LORAZEPAM 0.5 MG TABLET PO ONE (19:00)
[2018-08-09] MEDS ORDERED: ONDANSETRON ODT 4 MG TAB.RAPDIS SL ONE (19:00)
[2018-08-09 19:05] VITALS: BP 138/77
== END 2018-08-09 19:07 | disposition home or self-care (01) ==
LOC: ER 17:32
DX: F41.8 Other specified anxiety disorders (principal); K21.9 Gastro-esophageal reflux disease without esophagitis; E11.9 Type 2 diabetes mellitus without complications; F32.9 Major depressive disorder, single episode, unspecified; F12.10 Cannabis abuse, uncomplicated; Z88.5 Allergy status to narcotic agent; Z90.49 Acquired absence of other specified parts of digestive tract
CPT/HCPCS: 96372; 99284; J1885; A4663; Q0162

== ENCOUNTER 2019-03-26 02:41 | Emergency (ER) | payer BC ==
[~2019-03-26] VITALS: Ht 165.1 cm; Wt 111.1 kg
--- NOTE | 2019-03-26 03:00 | NUR ---
PATIENT CAME WALKING TO THE ER ,COMPLAINING OF ABDOMINAL PAIN ,UPPER MIDDLE PAIN TO HER ABDOME AREA SHE SAID SHE IS NAUSEOUS BUT NO VOMITTING BUT YESTERDAY WITH LOOSE TO WATERY STOOL X4 TIMES BUT NO DIARRHEA TODAY .
--- NOTE | 2019-03-26 03:06 | NUR ---
DRAKE AT BEDSIDE EXAMINING PATIENT .
[2019-03-26] MEDS ORDERED: ONDANSETRON 4 MG/2 ML VIAL ONE ×3 (03:14→05:03)
[2019-03-26] MEDS ORDERED: PANTOPRAZOLE SODIUM 40 MG VIAL ONE (03:14)
[2019-03-26 03:25] LABS: BASOPHILS % (AUTO) 0.2 % (0.0-2.0); EOSINOPHILS % (AUTO) 0.1 % (0.0-7.0); HEMATOCRIT 44.6 % (31.2-41.9); HEMOGLOBIN 14.9 g/dL (10.9-14.3); LYMPHOCYTES # (AUTO) 2.4 K/uL (20.0-40.0); LYMPHOCYTES % (AUTO) 11.3 % (20.5-51.5); MEAN CORPUSCULAR HEMOGLOBIN 27.4 uug (24.7-32.8); MEAN CORPUSCULAR HGB CONC 33 g/dL (32.3-35.6); MEAN CORPUSCULAR VOLUME 82.1 fL (75.5-95.3); MONOCYTES # (AUTO) 1.1 K/uL (2.0-10.0); MONOCYTES % (AUTO) 5.3 % (0.0-11.0); NEUTROPHILS # (AUTO) 17.6 K/uL (1.8-8.9); NEUTROPHILS % (AUTO) 83.1 % (38.5-71.5); PLATELET COUNT (AUTO) 351 K/uL (179-408); RED BLOOD CELL COUNT(AUTO) 5.43 MIL/uL (3.63-4.92); WHITE BLOOD COUNT (AUTO) 21.1 K/uL (3.8-11.8)
[2019-03-26] MEDS: IV NORMAL SALINE 1000 ML BAG IV ONE (03:26)
[2019-03-26] MEDS: PANTOPRAZOLE SODIUM 40 MG VIAL IV ONE (03:27)
[2019-03-26 03:28] LABS: CARBON DIOXIDE 30 mmol/L (21-32); CHLORIDE 97 mmol/L (98-107); CREATININE 0.7 mg/dL (0.6-1.3); GLUCOSE 210 mg/dL (74-106); POTASSIUM 3.6 mmol/L (3.5-5.1); UREA NITROGEN, BLOOD 13 mg/dL (7-18)
[2019-03-26] MEDS: ONDANSETRON 4 MG/2 ML VIAL IV ONE ×2 (03:28→05:04)
[2019-03-26 03:49] LABS: BILIRUBIN,DIRECT 0.2 mg/dL (0.0-0.2); BILIRUBIN,TOTAL 1.1 mg/dL (0.2-1.0); TOTAL PROTEIN, SERUM 9.1 g/dL (6.4-8.2)
[2019-03-26] MEDS ORDERED: KETOROLAC TROMETHAMINE 30 MG INJ ONE (03:49)
[2019-03-26] MEDS: KETOROLAC TROMETHAMINE 30 MG INJ IVP ONE (03:53)
[2019-03-26] MEDS: ONDANSETRON IV *ER 4 MG/2 ML VIAL IV ONE (05:03)
--- NOTE | 2019-03-26 05:28 | NUR ---
DR:HANG AT BEDSIDE ,TALK TO PATIENT AND PLAN OF CARE AND TREATMENT ,PATIENT REQUESTING FOR PRESCRIPTION FOR SUPPOSITORY . PATIENT AT THIS TIME DENIES PAIN AND NO NAUSEA OR VOMITTING AND SHE SAID SHE IS READY TO BE D/C .
--- NOTE | 2019-03-26 05:32 | NUR ---
Patient discharged to home in stable conditon. Written and verbal after care instructions given. Patient verbalizes understanding of instructions.PATIENT WENT HOME AT THIS TIME SHE SAID SHE FEELS MUCH BETTER NO ABDOMINAL PAIN AND N/V RESOLVED.WENT HOME WITH ALL HER BELONGINGS . WENT HOME AMBULATING STEADY OF GAIT,V/S WNL NO RESPIRATORY DISTRESS .
[2019-03-26 05:38] VITALS: BP 105/95
== END 2019-03-26 05:43 | disposition home or self-care (01) ==
LOC: ER 02:43
DX: K29.70 Gastritis, unspecified, without bleeding (principal); E11.9 Type 2 diabetes mellitus without complications; F12.10 Cannabis abuse, uncomplicated; Z88.5 Allergy status to narcotic agent; Z90.49 Acquired absence of other specified parts of digestive tract; Z79.899 Other long term (current) drug therapy
CPT/HCPCS: 36415; 80048; 80076; 83690; 84702; 85025; 96361; 96374; 96375; 96376; 99283; C9113; J1885; J2405 ×3; A4663; J7030

== ENCOUNTER 2019-06-14 02:52 | Emergency (ER) | payer BC ==
[~2019-06-14] VITALS: Ht 165.1 cm; Wt 113.4 kg
[2019-06-14] MEDS ORDERED: IV NS 1000 ML 1,000 ML IV ONE (03:00)
[2019-06-14] MEDS ORDERED: VANCOMYCIN IV 1,000 MG in IV DEXTROSE 5% 250 ML IV ONE (03:00)
[2019-06-14] MEDS ORDERED: IV NORMAL SALINE 1000 ML BAG IV ONE (03:15)
[2019-06-14] MEDS ORDERED: HYDROMORPHONE 1 MG/1 ML DISP.SYRIN IV ONE ×2 (03:15→04:45)
[2019-06-14] MEDS ORDERED: ONDANSETRON 4 MG/2 ML VIAL IV ONE ×2 (03:15→04:45)
[2019-06-14] MEDS ORDERED: HYDROMORPHONE 1 MG/1 ML DISP.SYRIN ONE ×2 (03:24→04:47)
[2019-06-14] MEDS ORDERED: ONDANSETRON 4 MG/2 ML VIAL ONE ×2 (03:24→04:49)
[2019-06-14 03:47] LABS: BASOPHILS % (AUTO) 0.1 % (0.0-2.0); EOSINOPHILS % (AUTO) 0.1 % (0.0-7.0); HEMATOCRIT 42.3 % (31.2-41.9); HEMOGLOBIN 14.8 g/dL (10.9-14.3); LYMPHOCYTES # (AUTO) 2.5 K/uL (20.0-40.0); LYMPHOCYTES % (AUTO) 12.3 % (20.5-51.5); MEAN CORPUSCULAR HEMOGLOBIN 29.4 uug (24.7-32.8); MEAN CORPUSCULAR HGB CONC 35 g/dL (32.3-35.6); MONOCYTES # (AUTO) 1.1 K/uL (2.0-10.0); MONOCYTES % (AUTO) 5.6 % (0.0-11.0); NEUTROPHILS # (AUTO) 16.5 K/uL (1.8-8.9); NEUTROPHILS % (AUTO) 81.9 % (38.5-71.5); PLATELET COUNT (AUTO) 380 K/uL (179-408); RED BLOOD CELL COUNT(AUTO) 5.03 MIL/uL (3.63-4.92); WHITE BLOOD COUNT (AUTO) 20.2 K/uL (3.8-11.8)
[2019-06-14 03:56] LABS: BILIRUBIN,DIRECT 0.1 mg/dL (0.0-0.2); BILIRUBIN,TOTAL 1.2 mg/dL (0.2-1.0); CREATININE 0.6 mg/dL (0.6-1.3); POTASSIUM 3.2 mmol/L (3.5-5.1); TOTAL PROTEIN, SERUM 8.9 g/dL (6.4-8.2)
--- NOTE | 2019-06-14 03:59 | NUR ---
Pt provided urine sample, sent to lab.
[2019-06-14 04:20] LABS: *BILIRUBIN,URIN 1+ (NEGATIVE); *BLOOD, URINE 1+ (NEGATIVE); *COLOR,URINE YELLOW (YELLOW); *KETONES,URINE 1+ (NEGATIVE); *UROBILINOGEN,URINE 0.2 E.U./dl (NORMAL); LEUKOCYTE ESTERASE ,URINE NEGATIVE (NEGATIVE); NITRITE, URINE NEGATIVE (NEGATIVE); PH,URINE 5.5 (5.0-8.0); UGLUCOSE NEGATIVE (NEGATIVE)
[2019-06-14] MEDS ORDERED: POTASSIUM CHLORIDE 20 MEQ TAB.PRT.SR PO ONE (04:30)
[2019-06-14 04:35] LABS: *URINE HCG, QUAL NEGATIVE (NEGATIVE)
[2019-06-14] MEDS ORDERED: POTASSIUM CHLORIDE 20 MEQ TAB.PRT.SR ONE (04:35)
[2019-06-14 04:36] LABS: *CLARITY,URINE HAZY (CLEAR)
[2019-06-14 04:55] LABS: ABG BASE EXCESS 3.1 mmol/L; ABG HCO3 26.7 mmol/L; ABG PCO2 37.6 mmHg (35.0-45.0); ABG PH 7.469 (7.350-7.450); ABG PO2 84.5 mmHg (75.0-100.0); ABG SITE LEFT RADIAL; ABG TOTAL HEMOGLOBIN 14.7 G/dL (12.0-16.0); COHb 1.5 % (0.5-1.5); MetHb 0.1 % (0.0-1.5); O2Hb 95.1 % (94.0-97.0); VENT MODE ROOM AIR
[2019-06-14 04:56] LABS: BACTERIA,URINE MODERATE /HPF (NONE SEEN); SQUAMOUS EPITHELIAL CELL,UR MANY /HPF (NONE SEEN)
--- NOTE | 2019-06-14 05:03 | NUR ---
PO CHALLENGE DIRECTED. PT ABLE TO TOLERATE 60ML OF WATER PT DENIES PAIN, DENIES NAUSEA.
--- NOTE | 2019-06-14 06:11 | NUR ---
DCPatient discharged to home in stable conditon. Written and verbal after care instructions given. Patient verbalizes understanding of instructions. AMBLATORY WITH STABLE GAIT ALL BELONGINGS WITH PT
[2019-06-14 06:12] VITALS: BP 120/80
== END 2019-06-14 06:13 | disposition home or self-care (01) ==
LOC: ER 02:55
DX: E11.65 Type 2 diabetes mellitus with hyperglycemia (principal); R10.13 Epigastric pain; E86.0 Dehydration; F17.200 Nicotine dependence, unspecified, uncomplicated; F12.10 Cannabis abuse, uncomplicated; Z90.49 Acquired absence of other specified parts of digestive tract; Z79.899 Other long term (current) drug therapy
CPT/HCPCS: 36415; 36600; 80048; 80076; 81000; 81001; 83605; 83690; 84703; 85025; 87086; 93005; 96361; 96374; 96375; 96376; 99284; J1170 ×2; J2405 ×2; A4663; J7030

== ENCOUNTER 2019-07-04 14:38 | Emergency (ER) | payer BC ==
[~2019-07-04] VITALS: Ht 165.1 cm; Wt 113.4 kg
--- NOTE | 2019-07-04 16:22 | NUR ---
Dr Lewis at the bedside for MSE.
[2019-07-04] MEDS ORDERED: KETOROLAC TROMETHAMINE 15 MG INJ IVP ONE ×2 (16:30→18:15)
[2019-07-04] MEDS ORDERED: IV NORMAL SALINE 1000 ML BAG IV ONE ×2 (16:30)
[2019-07-04] MEDS ORDERED: diphenhydrAMINE 50 MG/1 ML VIAL IV ONE (16:30)
[2019-07-04] MEDS ORDERED: ONDANSETRON 4 MG/2 ML VIAL IV ONE (16:30)
[2019-07-04] MEDS ORDERED: diphenhydrAMINE 50 MG/1 ML VIAL ONE (16:42)
[2019-07-04] MEDS ORDERED: KETOROLAC TROMETHAMINE 15 MG INJ ONE ×2 (16:42→18:22)
[2019-07-04] MEDS ORDERED: ONDANSETRON 4 MG/2 ML VIAL ONE (16:42)
--- NOTE | 2019-07-04 17:18 | NUR ---
Patient is resting comfortably in bed with eyes closed, NAD noted.
[2019-07-04] MEDS ORDERED: LORAZEPAM 2 MG/1 ML VIAL IV ONE (18:15)
[2019-07-04] MEDS ORDERED: LORAZEPAM 2 MG/1 ML VIAL ONE (18:22)
--- NOTE | 2019-07-04 18:38 | NUR ---
IV removed. Catheter intact and site benign. Pressure and 4x4 gauze applied to site. No bleeding noted.
--- NOTE | 2019-07-04 18:39 | NUR ---
Patient discharged to home in stable conditon. Written and verbal after care instructions given. Patient verbalizes understanding of instructions.
[2019-07-04 18:40] VITALS: BP 127/80
== END 2019-07-04 18:41 | disposition home or self-care (01) ==
LOC: ER 14:38
DX: G43.A0 Cyclical vomiting, in migraine, not intractable (principal); E11.9 Type 2 diabetes mellitus without complications; F17.200 Nicotine dependence, unspecified, uncomplicated; F12.10 Cannabis abuse, uncomplicated; Z90.49 Acquired absence of other specified parts of digestive tract; Z88.5 Allergy status to narcotic agent; Z88.8 Allergy status to other drugs, medicaments and biological substances; Z79.899 Other long term (current) drug therapy
CPT/HCPCS: 96361; 96374; 96375; 96376; 99283; J1200; J1885 ×2; J2060; J2405; A4663; J7030

== ENCOUNTER 2019-07-05 06:26 | Emergency (ER) | payer BC ==
[~2019-07-05] VITALS: Ht 165.1 cm; Wt 113.4 kg
--- NOTE | 2019-07-05 06:52 | NUR ---
Patient ambulated with stable gait. A/Ox4. Speech is clear, speaks in complete sentences. No neuro deficits. Patient came for c/o nausea + vomiting x12 hrs. Patient was last seen here yesterday with the same presentation. Respiratory even and unlabored, no cough no sob. No cardiovascular distress noted, all pulses palpable. Denies any distress. Patient in bed at lowest position, sr upx2, call light within reach. Fall precautions implemented per protocol.
--- NOTE | 2019-07-05 07:15 | NUR ---
Report received.Pt remains awake,alert.Ambulating in room.Seen,examined by .
[2019-07-05] MEDS ORDERED: KETOROLAC TROMETHAMINE 15 MG INJ IVP ONE (07:30)
[2019-07-05] MEDS ORDERED: METOCLOPRAMIDE HCL 10 MG/2 ML VIAL IV ONE (07:30)
[2019-07-05] MEDS ORDERED: IV NORMAL SALINE 1000 ML BAG IV ONE (07:30)
[2019-07-05] MEDS ORDERED: diphenhydrAMINE 50 MG/1 ML VIAL IV ONE (07:30)
[2019-07-05] MEDS ORDERED: METOCLOPRAMIDE HCL 10 MG/2 ML VIAL ONE (07:41)
[2019-07-05] MEDS ORDERED: KETOROLAC TROMETHAMINE 15 MG INJ ONE (07:41)
[2019-07-05] MEDS ORDERED: diphenhydrAMINE 50 MG/1 ML VIAL ONE (07:41)
[2019-07-05 07:48] LABS: BASOPHILS # (AUTO) 0.1 K/uL (0.0-8.0); BASOPHILS % (AUTO) 0.3 % (0.0-2.0); HEMATOCRIT 40.4 % (31.2-41.9); HEMOGLOBIN 13.6 g/dL (10.9-14.3); LYMPHOCYTES # (AUTO) 1.6 K/uL (20.0-40.0); LYMPHOCYTES % (AUTO) 7.6 % (20.5-51.5); MEAN CORPUSCULAR HEMOGLOBIN 28.5 uug (24.7-32.8); MEAN CORPUSCULAR HGB CONC 34 g/dL (32.3-35.6); MEAN CORPUSCULAR VOLUME 84.5 fL (75.5-95.3); MONOCYTES # (AUTO) 0.8 K/uL (2.0-10.0); MONOCYTES % (AUTO) 3.9 % (0.0-11.0); NEUTROPHILS # (AUTO) 18.8 K/uL (1.8-8.9); NEUTROPHILS % (AUTO) 88.2 % (38.5-71.5); PLATELET COUNT (AUTO) 326 K/uL (179-408); RED BLOOD CELL COUNT(AUTO) 4.78 MIL/uL (3.63-4.92); WHITE BLOOD COUNT (AUTO) 21.3 K/uL (3.8-11.8)
[2019-07-05 07:55] LABS: CREATININE 0.7 mg/dL (0.6-1.3); POTASSIUM 3.5 mmol/L (3.5-5.1)
[2019-07-05 08:01] LABS: BILIRUBIN,DIRECT 0.1 mg/dL (0.0-0.2); BILIRUBIN,TOTAL 0.9 mg/dL (0.2-1.0); TOTAL PROTEIN, SERUM 8.5 g/dL (6.4-8.2)
--- NOTE | 2019-07-05 09:32 | NUR ---
Pt remains asleep.Denies abdominal pain,nausea.IV fluids NS infusing.Will continue to monitor.
[2019-07-05] MEDS ORDERED: LORAZEPAM 2 MG/1 ML VIAL IV ONE (10:15)
[2019-07-05] MEDS ORDERED: LORAZEPAM 2 MG/1 ML VIAL ONE (10:18)
[2019-07-05 11:24] VITALS: BP 128/78
== END 2019-07-05 11:26 | disposition home or self-care (01) ==
LOC: ER 06:29
DX: G43.A0 Cyclical vomiting, in migraine, not intractable (principal); F41.9 Anxiety disorder, unspecified; F32.9 Major depressive disorder, single episode, unspecified; F17.200 Nicotine dependence, unspecified, uncomplicated; F12.10 Cannabis abuse, uncomplicated; Z88.5 Allergy status to narcotic agent; Z88.8 Allergy status to other drugs, medicaments and biological substances; Z79.899 Other long term (current) drug therapy; Z90.49 Acquired absence of other specified parts of digestive tract
CPT/HCPCS: 36415; 80048; 80076; 83690; 84484; 84702; 85025; 96374; 96375; 99283; J1200; J1885; J2060; J2765; 70030-TC; A4663; J7030

== ENCOUNTER 2019-08-30 19:27 | Emergency (ER) | payer BC ==
[~2019-08-30] VITALS: Ht 165.1 cm; Wt 113.4 kg
[2019-08-30] MEDS ORDERED: IV NORMAL SALINE 1000 ML BAG IV ONE (20:00)
[2019-08-30 20:10] LABS: RED BLOOD CELL COUNT(AUTO) 5.02 MIL/UL (4.2-5.4)
[2019-08-30 20:11] LABS: BASOPHILS % (AUTO) 0.3 % (0.0-2.0); EOSINOPHILS % (AUTO) 0.3 % (0.0-7.0); HEMATOCRIT 42.4 % (37-47); HEMOGLOBIN 14.1 G/DL (12.0-16.0); LYMPHOCYTES % (AUTO) 15.2 % (20.5-51.5); MEAN CORPUSCULAR HEMOGLOBIN 28.1 UUG (27.0-31.0); MEAN CORPUSCULAR HGB CONC 33 g/dL (32.0-37.0); MEAN CORPUSCULAR VOLUME 84.4 FL (81.0-99.0); MONOCYTES % (AUTO) 6.9 % (0.0-11.0); NEUTROPHILS % (AUTO) 77.3 % (38.5-71.5); PLATELET COUNT (AUTO) 318 K/UL (150-450)
[2019-08-30 20:12] LABS: EOSINOPHILS # (AUTO) 0.1 K/uL (0.0-0.7); LYMPHOCYTES # (AUTO) 2.6 K/UL (0.8-4.8); MONOCYTES # (AUTO) 1.2 K/UL (0.1-1.30); NEUTROPHILS # (AUTO) 13.2 K/UL (1.8-8.9)
[2019-08-30 20:20] LABS: POTASSIUM 3.4 mmol/L (3.5-5.1)
[2019-08-30] MEDS ORDERED: KETOROLAC TROMETHAMINE 30 MG INJ ONE (20:20)
[2019-08-30] MEDS ORDERED: LORAZEPAM 2 MG/1 ML VIAL ONE (20:21)
[2019-08-30 20:22] LABS: BILIRUBIN,DIRECT 0.2 mg/dL (0.0-0.2); BILIRUBIN,TOTAL 0.9 mg/dL (0.1-1.0); CREATININE 0.8 mg/dL (0.6-1.3); TOTAL PROTEIN, SERUM 8.4 g/dL (6.4-8.2)
[2019-08-30] MEDS ORDERED: KETOROLAC TROMETHAMINE 30 MG INJ IVP ONE (20:30)
[2019-08-30] MEDS ORDERED: IV NS 1000 ML 1,000 ML IV ONE (20:30)
[2019-08-30] MEDS ORDERED: HYDROMORPHONE 1 MG/1 ML DISP.SYRIN IV ONE (20:30)
[2019-08-30] MEDS ORDERED: LORAZEPAM 2 MG/1 ML VIAL IV ONE (20:30)
[2019-08-30] MEDS ORDERED: HYDROMORPHONE 1 MG/1 ML DISP.SYRIN ONE (20:41)
[2019-08-30 21:04] LABS: ABG BASE EXCESS 0.6 mmol/L; ABG HCO3 24.1 mmol/L; ABG PCO2 35.3 mmHg (35.0-45.0); ABG PH 7.452 (7.350-7.450); ABG PO2 86.5 mmHg (75.0-100.0); ABG SITE LEFT RADIAL; ABG TOTAL HEMOGLOBIN 13.9 G/dL (12.0-16.0); COHb 2.1 % (0.5-1.5); MetHb 0.1 % (0.0-1.5); O2Hb 95.1 % (94.0-97.0); VENT MODE room air
[2019-08-30] MEDS ORDERED: METOCLOPRAMIDE HCL 10 MG/2 ML VIAL IV ONE (21:30)
[2019-08-30] MEDS ORDERED: HUMAN IV ONE ×4 (21:30→22:15)
[2019-08-30] MEDS ORDERED: INSULIN REGULAR IV ONE ×4 (21:30→22:15)
[2019-08-30] MEDS ORDERED: NORMAL SALINE IV ONE ×4 (21:30→22:15)
[2019-08-30] MEDS ORDERED: METOCLOPRAMIDE HCL 10 MG/2 ML VIAL ONE (21:47)
[2019-08-30] MEDS ORDERED: INSULIN REGULAR, HUMAN 300 UNIT/3 ML VIAL ONE (21:58)
--- NOTE | 2019-08-30 22:21 | NUR ---
ERMD ORDERED INSULIN (REGULAR) 8UNITS INTERVENTION FOR 303MG/DL CONFIRMED BY 2RNS (MICHAEL AND MIGUEL ANGEL) PT ABLE TO TOLERATE
--- NOTE | 2019-08-30 23:07 | NUR ---
Patient discharged to home in stable conditon. Written and verbal after care instructions given. Patient verbalizes understanding of instructions. ambulatory w/ stable gait all belongings w/ pt IV SALINE LOCK ON L AC DC, DRESSED
[2019-08-30 23:12] VITALS: BP 115/63
== END 2019-08-30 23:00 | disposition home or self-care (01) ==
LOC: ER 19:27
DX: R10.13 Epigastric pain (principal); R11.10 Vomiting, unspecified; R19.7 Diarrhea, unspecified; F32.9 Major depressive disorder, single episode, unspecified; F41.9 Anxiety disorder, unspecified; F17.200 Nicotine dependence, unspecified, uncomplicated; F12.10 Cannabis abuse, uncomplicated; Z88.5 Allergy status to narcotic agent; Z88.8 Allergy status to other drugs, medicaments and biological substances; Z90.49 Acquired absence of other specified parts of digestive tract; Z79.899 Other long term (current) drug therapy
CPT/HCPCS: 36600; 80048; 80076; 83690; 84702; 85025; 96361; 96374; 96375; 99283; J1170; J1815; J1885; J2060; J2765; A4663; J7030

== ENCOUNTER 2019-10-10 23:22 | Emergency (ER) | payer BC ==
[~2019-10-10] VITALS: Ht 165.1 cm; Wt 113.4 kg
[2019-10-10] MEDS ORDERED: ERYT-113 PO (23:34)
[2019-10-10] MEDS ORDERED: AMIT10TA6 PO (23:34)
[2019-10-10] MEDS ORDERED: ESOM20CA PO (23:34)
[2019-10-10] MEDS ORDERED: DEXT15SY3 PO (23:35)
--- NOTE | 2019-10-10 23:51 | NUR ---
Dr. Aden at bedside for MSE.
--- NOTE | 2019-10-11 00:12 | NUR ---
Patient discharged to home in stable conditon. Written and verbal after care instructions given. Patient verbalizes understanding of instructions. Pt ambulated out of ER with steady gait, no acute signs of distress, VSS, all belongings taken.
[2019-10-11 00:13] VITALS: BP 139/91
== END 2019-10-11 00:13 | disposition home or self-care (01) ==
LOC: ER 23:26
DX: J11.1 Influenza due to unidentified influenza virus with other respiratory manifestations (principal); F32.9 Major depressive disorder, single episode, unspecified; F41.9 Anxiety disorder, unspecified; F12.10 Cannabis abuse, uncomplicated; F17.200 Nicotine dependence, unspecified, uncomplicated; Z79.899 Other long term (current) drug therapy; Z90.49 Acquired absence of other specified parts of digestive tract; Z88.5 Allergy status to narcotic agent; Z88.8 Allergy status to other drugs, medicaments and biological substances
CPT/HCPCS: A4663

== ENCOUNTER 2020-05-24 03:35 | Emergency (ER) | payer BC ==
[~2020-05-24] VITALS: Ht 165.1 cm; Wt 104.3 kg
[~2020-05-24 03:35] MED LIST changes: +AMIT10TA6 PO; +DEXT15SY3 PO; +ERYT-113 PO; +ESOM20CA PO; -NORT25CA PO; -OMEP20TA20 PO
[2020-05-24] MEDS ORDERED: IV NORMAL SALINE 1000 ML BAG IV ONE (04:00)
[2020-05-24] MEDS ORDERED: ONDANSETRON 4 MG/2 ML VIAL IV ONE (04:00)
[2020-05-24] MEDS ORDERED: KETOROLAC TROMETHAMINE 30 MG INJ IVP ONE (04:00)
--- NOTE | 2020-05-24 04:01 | NUR ---
Dr. Ceja at bedside for MSE.
[2020-05-24] MEDS ORDERED: KETOROLAC TROMETHAMINE 30 MG INJ ONE (04:02)
[2020-05-24] MEDS ORDERED: ONDANSETRON 4 MG/2 ML VIAL ONE (04:03)
[2020-05-24] MEDS ORDERED: PANTOPRAZOLE SODIUM 40 MG VIAL ONE (04:23)
[2020-05-24] MEDS ORDERED: PANTOPRAZOLE SODIUM 40 MG VIAL IV ONE (04:30)
--- NOTE | 2020-05-24 05:45 | NUR ---
Pt verbalized that she is feeling a lot better. Patient discharged to home in stable condition. Written and verbal after care instructions given. Patient verbalizes understanding of instructions. Stressed follow up or return to ER for worsening s/s. IV removed. Catheter intact and site benign. Pressure and 4x4 gauze applied to site. No bleeding noted. Ambulated out of ER in steady gait.
[2020-05-24 06:07] VITALS: BP 150/100
== END 2020-05-24 06:00 | disposition home or self-care (01) ==
LOC: ER 03:38
DX: R11.15 Cyclical vomiting syndrome unrelated to migraine (principal); E66.9 Obesity, unspecified; Z68.38 Body mass index [BMI] 38.0-38.9, adult; Z90.49 Acquired absence of other specified parts of digestive tract; Z88.6 Allergy status to analgesic agent; Z88.1 Allergy status to other antibiotic agents; F12.90 Cannabis use, unspecified, uncomplicated; E11.9 Type 2 diabetes mellitus without complications; Z79.899 Other long term (current) drug therapy; R03.0 Elevated blood-pressure reading, without diagnosis of hypertension; R52 Pain, unspecified; Z87.440 Personal history of urinary (tract) infections; Z87.19 Personal history of other diseases of the digestive system
CPT/HCPCS: 36415; 84702; 96361; 96374; 96375; 99284; C9113; J1885; J2405; A4663; J7030

== ENCOUNTER 2022-07-27 18:49 | Emergency (ER) | payer SELFPAY ==
[~2022-07-27] VITALS: Ht 165.1 cm; Wt 103.0 kg
[~2022-07-27 18:49] MED LIST changes: -DEXT15SY3 PO; -ERYT-113 PO
--- NOTE | 2022-07-27 19:35 | NUR ---
Patient at bedside with Dr. Anderson. MSE in progress.
[2022-07-27] MEDS ORDERED: METFORMIN HCL 500 MG TABLET ONE (19:57)
[2022-07-27] MEDS: METFORMIN HCL 500 MG TABLET PO ONE (19:59)
--- NOTE | 2022-07-27 20:10 | NUR ---
Patient discharged to home in stable condition. A/O x4. NAD noted. Ambulatory with cane. Written and verbal after care instructions given. Patient verbalizes understanding of instructions. Stressed follow up or return to ER for worsening s/s.
[2022-07-27 20:40] VITALS: BP 155/88
== END 2022-07-27 20:10 | disposition home or self-care (01) ==
LOC: ER 18:52
DX: G57.11 Meralgia paresthetica, right lower limb (principal); E11.65 Type 2 diabetes mellitus with hyperglycemia; Z79.899 Other long term (current) drug therapy; Z90.49 Acquired absence of other specified parts of digestive tract; E66.9 Obesity, unspecified; Z68.37 Body mass index [BMI] 37.0-37.9, adult; E28.2 Polycystic ovarian syndrome; Z88.5 Allergy status to narcotic agent; S90.464A Insect bite (nonvenomous), right lesser toe(s), initial encounter; W57.XXXA Bitten or stung by nonvenomous insect and other nonvenomous arthropods, initial encounter; Y92.89 Other specified places as the place of occurrence of the external cause
CPT/HCPCS: A4663

== ENCOUNTER 2022-08-03 11:27 | Emergency (ER) | payer SELFPAY ==
[~2022-08-03] VITALS: Ht 165.1 cm; Wt 99.8 kg
[2022-08-03] MEDS ORDERED: METF-440 PO (11:37)
--- NOTE | 2022-08-03 11:39 | NUR ---
at bedside for evaluation.
--- NOTE | 2022-08-03 11:40 | NUR ---
Patient walked into ER complaining of skin rash on bilateral feet. Patient states it has been ongoing on and off for a month now.
[2022-08-03] MEDS ORDERED: FAMOTIDINE 20 MG TABLET PO ONE (11:45)
[2022-08-03] MEDS ORDERED: diphenhydrAMINE 50 MG CAPSULE PO ONE (11:45)
[2022-08-03] MEDS ORDERED: predniSONE 20 MG TABLET PO ONE (11:45)
[2022-08-03] MEDS ORDERED: diphenhydrAMINE 50 MG CAPSULE ONE (11:53)
[2022-08-03] MEDS ORDERED: FAMOTIDINE 20 MG TABLET ONE (11:53)
[2022-08-03] MEDS ORDERED: predniSONE 20 MG TABLET ONE (11:53)
[2022-08-03] MEDS ORDERED: DIPH25CA83 PO (12:57)
[2022-08-03] MEDS ORDERED: PRED20TA PO (12:57)
[2022-08-03] MEDS ORDERED: FAMO-132 PO (12:57)
[2022-08-03 13:47] VITALS: BP 100/77
--- NOTE | 2022-08-03 13:47 | NUR ---
Patient discharged to home in stable condition. Written and verbal after care instructions given. Patient verbalizes understanding of instructions. Stressed follow up or return to ER for worsening s/s.
== END 2022-08-03 13:55 | disposition home or self-care (01) ==
LOC: ER 11:27
DX: R21 Rash and other nonspecific skin eruption (principal); T78.40XA Allergy, unspecified, initial encounter; X58.XXXA Exposure to other specified factors, initial encounter; E11.9 Type 2 diabetes mellitus without complications; E66.9 Obesity, unspecified; Z68.36 Body mass index [BMI] 36.0-36.9, adult; Z88.1 Allergy status to other antibiotic agents; Z88.5 Allergy status to narcotic agent; E28.2 Polycystic ovarian syndrome; Z79.84 Long term (current) use of oral hypoglycemic drugs; Z87.19 Personal history of other diseases of the digestive system
CPT/HCPCS: A4663; J7512; Q0163

== ENCOUNTER 2022-09-26 04:29 | Emergency (ER) | payer SELFPAY ==
[~2022-09-26] VITALS: Ht 165.1 cm; Wt 102.1 kg
[~2022-09-26 04:29] MED LIST changes: +DIPH25CA83 PO; -ESCI20TA PO; -ESOM20CA PO; +FAMO-132 PO; +METF-440 PO; +PRED20TA PO
--- NOTE | 2022-09-26 04:47 | NUR ---
Dr. Blakely at bedside. MSE in progress.
[2022-09-26] MEDS ORDERED: HYDROMORPHONE 1 MG/1 ML DISP.SYRIN IV ONE ×2 (05:00→06:30)
[2022-09-26] MEDS ORDERED: PROCHLORPERAZINE EDISYLATE 10 MG/2 ML VIAL IV ONE (05:00)
[2022-09-26] MEDS ORDERED: IV NORMAL SALINE 1000 ML BAG IV ONE (05:00)
[2022-09-26] MEDS ORDERED: HYDROMORPHONE 1 MG/1 ML DISP.SYRIN ONE ×2 (05:05→06:17)
[2022-09-26] MEDS ORDERED: PROCHLORPERAZINE EDISYLATE 10 MG/2 ML VIAL ONE (05:05)
[2022-09-26 05:22] LABS: HEMATOCRIT 40.3 % (31.2-41.9); MEAN CORPUSCULAR HEMOGLOBIN 28.4 uug (24.7-32.8); MEAN CORPUSCULAR VOLUME 84.2 fL (75.5-95.3); PLATELET COUNT (AUTO) 282 K/uL (179-408)
[2022-09-26 05:30] LABS: CREATININE 0.7 mg/dL (0.6-1.3); POTASSIUM 3.1 mmol/L (3.5-5.1)
--- NOTE | 2022-09-26 05:30 | NUR ---
Patient ambulatory with a steady gait. Able to give urine sample.
[2022-09-26] MEDS ORDERED: OMEP20TA20 PO (05:35)
[2022-09-26] MEDS ORDERED: METR500T PO (05:35)
[2022-09-26] MEDS ORDERED: HYDR-3980 PO (05:35)
[2022-09-26] MEDS ORDERED: TETR-66 PO (05:35)
[2022-09-26] MEDS ORDERED: PROC-11 PO (05:35)
[2022-09-26] MEDS ORDERED: BISM262T27 PO (05:35)
[2022-09-26 05:36] LABS: BILIRUBIN,DIRECT 0.2 mg/dL (0.0-0.2); BILIRUBIN,TOTAL 0.4 mg/dL (0.2-1.0)
[2022-09-26] MEDS ORDERED: POTASSIUM BICARBONATE/CIT AC 25 MEQ TABLET.EFF ONE (05:56)
[2022-09-26] MEDS ORDERED: POTASSIUM BICARBONATE/CIT AC 25 MEQ TABLET.EFF PO ONE (06:00)
[2022-09-26] MEDS ORDERED: BLOO-1731 MC (06:15)
[2022-09-26] MEDS ORDERED: IV NS 1000 ML 1,000 ML IV ONE (06:15)
[2022-09-26 06:51] LABS: *BILIRUBIN,URIN NEGATIVE (NEGATIVE); *BLOOD, URINE NEGATIVE (NEGATIVE); *CLARITY,URINE CLEAR (CLEAR); *COLOR,URINE YELLOW (YELLOW); *KETONES,URINE 1+ (NEGATIVE); *UROBILINOGEN,URINE 0.2 E.U./dl (NORMAL); LEUKOCYTE ESTERASE ,URINE TRACE (NEGATIVE); NITRITE, URINE NEGATIVE (NEGATIVE); PH,URINE 5.5 (5.0-8.0); UGLUCOSE TRACE (NEGATIVE)
--- NOTE | 2022-09-26 07:07 | NUR ---
Report given to WEN Ramirez.
--- NOTE | 2022-09-26 08:40 | NUR ---
IV removed. Catheter intact and site benign. Pressure and 4x4 gauze applied to site. No bleeding noted.
[2022-09-26 08:44] VITALS: BP 144/96
[2022-09-26 12:35] LABS: BACTERIA,URINE NONE SEEN /HPF (NONE SEEN); RBC,URINE 0-3 /HPF (0-3); SQUAMOUS EPITHELIAL CELL,UR FEW /HPF (NONE SEEN)
[2022-09-26 12:36] LABS: URINE AMORPHOUS URATE MANY /HPF
== END 2022-09-26 08:54 | disposition home or self-care (01) ==
LOC: ER 04:32
DX: K29.70 Gastritis, unspecified, without bleeding (principal); E11.65 Type 2 diabetes mellitus with hyperglycemia; Z79.84 Long term (current) use of oral hypoglycemic drugs; E87.6 Hypokalemia; E87.20 Acidosis, unspecified; Z90.49 Acquired absence of other specified parts of digestive tract; R21 Rash and other nonspecific skin eruption; E66.9 Obesity, unspecified; Z68.37 Body mass index [BMI] 37.0-37.9, adult; E28.2 Polycystic ovarian syndrome
CPT/HCPCS: 99291; 96374; 96361; 96375; 80076; 80048; 81001; 83690; 85025; 36415; 96376; 83605 ×2; J0780; J1170 ×2; J7040 ×2; A4663

== ENCOUNTER 2022-10-03 10:19 | Emergency (ER) | payer SELFPAY ==
[~2022-10-03] VITALS: Ht 165.1 cm; Wt 90.7 kg
[~2022-10-03 10:19] MED LIST changes: +BISM262T27 PO; +BLOO-1731 MC; +HYDR-3980 PO; +METR500T PO; +OMEP20TA20 PO; +PROC-11 PO; +TETR-66 PO
--- NOTE | 2022-10-03 10:33 | NUR ---
PATIENT C/O NAUSEA AND ABDOMINAL PAIN. PLACED ON A MONITOR. IV PLACED. VSS
[2022-10-03] MEDS ORDERED: ONDANSETRON 4 MG/2 ML VIAL ONE (10:40)
[2022-10-03] MEDS ORDERED: FAMOTIDINE. 20 MG/2 ML VIAL IV ONE ×2 (10:41→10:45)
[2022-10-03] MEDS ORDERED: ONDANSETRON 4 MG/2 ML VIAL IV ONE (10:45)
[2022-10-03] MEDS ORDERED: IV NORMAL SALINE 1000 ML BAG IV ONE (10:45)
[2022-10-03 10:56] LABS: HEMATOCRIT 40.2 % (31.2-41.9); MEAN CORPUSCULAR VOLUME 83.7 fL (75.5-95.3); PLATELET COUNT (AUTO) 283 K/uL (179-408)
[2022-10-03] MEDS ORDERED: KETOROLAC TROMETHAMINE 15 MG INJ IVP ONE (11:15)
[2022-10-03] MEDS ORDERED: diphenhydrAMINE 50 MG/1 ML VIAL IV ONE (11:15)
[2022-10-03] MEDS ORDERED: HALOPERIDOL LACTATE 5 MG/1 ML VIAL IV ONE (11:15)
[2022-10-03] MEDS ORDERED: HALOPERIDOL LACTATE 5 MG/1 ML VIAL ONE (11:36)
[2022-10-03] MEDS ORDERED: KETOROLAC TROMETHAMINE 15 MG INJ ONE (11:36)
[2022-10-03] MEDS ORDERED: diphenhydrAMINE 50 MG/1 ML VIAL ONE (11:37)
[2022-10-03 11:56] LABS: BILIRUBIN,DIRECT 0.1 mg/dL (0.0-0.2); BILIRUBIN,TOTAL 0.5 mg/dL (0.2-1.0); CREATININE 0.7 mg/dL (0.6-1.3); POTASSIUM 3.6 mmol/L (3.5-5.1); TOTAL PROTEIN, SERUM 8.1 g/dL (6.4-8.2)
[2022-10-03] MEDS ORDERED: IV NORMAL SALINE 250 ML IV ONE (12:13)
[2022-10-03] MEDS ORDERED: SWABABLE VALVE TRANSFER SET EA MC ONE (12:13)
[2022-10-03] MEDS ORDERED: IOHEXOL 300MG/ML 100 ML INFUS..BTL ONE (12:13)
[2022-10-03] MEDS ORDERED: DICYCLOMINE HCL 20 MG TABLET PO SCH (12:30)
--- NOTE | 2022-10-03 12:46 | NUR ---
PATIENT STATES PAIN DIMINISHED SOME. SHE REQUESTS A "STRONGER PAIN MEDICINE" DR DOMINGO Montgomery NOTIFIED, HE SPOKE TO HER. PATIENT STATED SHE "WANTS TO LEAVE". SHE IS AWARE SHE HAS NOT COMPLETED TESTING AND TREATMENT , SHE STATES "I DONT CARE, I DONT WANT A CT SCAN, I JUST WANT TO LEAVE". STATES SHE DOESNT DRIVE OR HAVE A CAR AND STATES SHE UNDERSTANDS RISKS OF DRIVING WHILE ON MEDICATIONS WE GAVE HER TODAY. SHE SIGNED THE AMA FORM AFTER SPEAKING TO THE DOCTOR AND I DC'D HER IV
--- NOTE | 2022-10-03 12:49 | NUR ---
IV removed. Catheter intact and site benign. Pressure and 4x4 gauze applied to site. No bleeding noted.
[2022-10-04] MEDS ORDERED: HYDR-3980 PO (05:57)
[2022-10-04] MEDS ORDERED: METO-295 PO ×2 (05:57→09:25)
[2022-10-04] MEDS ORDERED: ESOM40CA PO (06:58)
[2022-10-04] MEDS ORDERED: [UNRECOGNIZED DRUG - CODE] MC (09:15)
[2022-10-04] MEDS ORDERED: [UNRECOGNIZED DRUG - CODE] PO (09:15)
[2022-10-04] MEDS ORDERED: PANT20TA17 PO (09:26)
== END 2022-10-03 12:52 | disposition left against medical advice (07) ==
LOC: ER 10:19
DX: R10.13 Epigastric pain (principal); R11.2 Nausea with vomiting, unspecified; Z90.49 Acquired absence of other specified parts of digestive tract; E11.9 Type 2 diabetes mellitus without complications; E66.9 Obesity, unspecified; Z68.33 Body mass index [BMI] 33.0-33.9, adult; Z88.1 Allergy status to other antibiotic agents; Z88.5 Allergy status to narcotic agent; Z79.84 Long term (current) use of oral hypoglycemic drugs; E28.2 Polycystic ovarian syndrome
CPT/HCPCS: 99284; 96374; 96375; 96361; 80076; 80048; 83690; 85025; 36415; J1200; J3490; J1630; J1885; J2405; J7040; A4663; Q9967

== ENCOUNTER 2022-10-04 00:08 | Emergency (ER) | payer SELFPAY ==
--- NOTE | 2022-10-04 00:18 | NUR ---
Patient was called to be triaged but was not present in the waiting room or outside of ER.
--- NOTE | 2022-10-04 00:40 | NUR ---
Patient called to be triaged but was not present in the waiting room of outside of ER.
--- NOTE | 2022-10-04 01:29 | NUR ---
Patient called to be triaged but was not present. PATIENT WAS NOT TRAIGED OR SEEN BY ERMD.
[2022-10-04] MEDS ORDERED: METO-295 PO ×2 (05:57→09:25)
[2022-10-04] MEDS ORDERED: HYDR-3980 PO (05:57)
[2022-10-04] MEDS ORDERED: ESOM40CA PO (06:58)
[2022-10-04] MEDS ORDERED: [UNRECOGNIZED DRUG - CODE] PO (09:15)
[2022-10-04] MEDS ORDERED: [UNRECOGNIZED DRUG - CODE] MC (09:15)
[2022-10-04] MEDS ORDERED: PANT20TA17 PO (09:26)
== END 2022-10-04 01:30 | disposition left against medical advice (07) ==
LOC: ER 00:12
DX: Z53.21 Procedure and treatment not carried out due to patient leaving prior to being seen by health care provider (principal)

== ENCOUNTER 2022-10-04 05:08 | Emergency (ER) | payer SELFPAY ==
[~2022-10-04] VITALS: Ht 165.1 cm; Wt 105.2 kg
--- NOTE | 2022-10-04 05:37 | NUR ---
seen and examined by Dr. Blakely
[2022-10-04] MEDS ORDERED: HYDROMORPHONE 1 MG/1 ML DISP.SYRIN IV ONE (05:45)
[2022-10-04] MEDS ORDERED: IV NS 1000 ML 1,000 ML IV ONE ×2 (05:45→07:30)
[2022-10-04] MEDS ORDERED: METOCLOPRAMIDE HCL 10 MG/2 ML VIAL IV ONE (05:45)
[2022-10-04] MEDS ORDERED: METOCLOPRAMIDE HCL 10 MG/2 ML VIAL ONE (05:47)
[2022-10-04] MEDS ORDERED: HYDROMORPHONE 2 MG/1 ML DISP.SYRIN ONE (05:48)
[2022-10-04] MEDS ORDERED: HYDR-3980 PO (05:57)
[2022-10-04] MEDS ORDERED: METO-295 PO ×2 (05:57→09:25)
[2022-10-04] MEDS ORDERED: ESOM40CA PO (06:58)
[2022-10-04] MEDS ORDERED: PANTOPRAZOLE SODIUM 40 MG VIAL IV ONE (07:15)
[2022-10-04] MEDS ORDERED: MAG HYDROX/AL HYDROX/SIMETH 30 ML LIQUID UDC PO ONE (07:15)
[2022-10-04] MEDS ORDERED: LIDOCAINE VISCUS 2% 15 ML UDC MM ONE (07:15)
[2022-10-04 07:16] LABS: CREATININE 0.6 mg/dL (0.6-1.3); POTASSIUM 3.5 mmol/L (3.5-5.1)
[2022-10-04] MEDS ORDERED: LIDOCAINE VISCUS 2% 15 ML UDC ONE (07:29)
[2022-10-04] MEDS ORDERED: PANTOPRAZOLE SODIUM 40 MG VIAL ONE (07:29)
[2022-10-04] MEDS ORDERED: MAG HYDROX/AL HYDROX/SIMETH 30 ML LIQUID UDC ONE (07:29)
[2022-10-04 07:30] LABS: *BILIRUBIN,URIN NEGATIVE (NEGATIVE); *BLOOD, URINE 1+ (NEGATIVE); *CLARITY,URINE CLEAR (CLEAR); *COLOR,URINE YELLOW (YELLOW); *KETONES,URINE 4+ (NEGATIVE); *UROBILINOGEN,URINE 0.2 E.U./dl (NORMAL); LEUKOCYTE ESTERASE ,URINE NEGATIVE (NEGATIVE); NITRITE, URINE NEGATIVE (NEGATIVE); PH,URINE 5.5 (5.0-8.0)
--- NOTE | 2022-10-04 07:30 | NUR ---
SBAR FROM RUBY CARVER RECEIVED PT; IN NAD; ON COVER MARKER SHOWING ST. PT STATES SHE HAS MID ABD. PAIN 03/18.
[2022-10-04 07:51] LABS: UGLUCOSE 2+ (NEGATIVE)
--- NOTE | 2022-10-04 07:51 | NUR ---
Received report from lab; U/A = Protein 3+, Glucose 2+ and Ketones 4+. RN and notified.
[2022-10-04 07:52] LABS: BACTERIA,URINE NONE SEEN /HPF (NONE SEEN); RBC,URINE 0-3 /HPF (0-3); SQUAMOUS EPITHELIAL CELL,UR FEW /HPF (NONE SEEN)
[2022-10-04 07:53] LABS: WBC,URINE 0-3 /HPF (0-3)
[2022-10-04 08:01] LABS: HEMATOCRIT 39.5 % (31.2-41.9); MEAN CORPUSCULAR VOLUME 84.2 fL (75.5-95.3); PLATELET COUNT (AUTO) 331 K/uL (179-408)
[2022-10-04 08:26] LABS: *URINE HCG, QUAL POSITIVE (NEGATIVE)
--- NOTE | 2022-10-04 09:14 | NUR ---
IV removed. Catheter intact and site benign. Pressure and 4x4 gauze applied to site. No bleeding noted. Pt mini well.
[2022-10-04] MEDS ORDERED: [UNRECOGNIZED DRUG - CODE] MC (09:15)
[2022-10-04] MEDS ORDERED: [UNRECOGNIZED DRUG - CODE] PO (09:15)
[2022-10-04 09:21] VITALS: BP 136/86
[2022-10-04] MEDS ORDERED: PANT20TA17 PO (09:26)
== END 2022-10-04 09:31 | disposition home or self-care (01) ==
LOC: ER 05:16
DX: O24.111 Pre-existing type 2 diabetes mellitus, in pregnancy, first trimester (principal); R10.13 Epigastric pain; E11.65 Type 2 diabetes mellitus with hyperglycemia; O21.8 Other vomiting complicating pregnancy; Z3A.01 Less than 8 weeks gestation of pregnancy; O99.211 Obesity complicating pregnancy, first trimester; Z68.38 Body mass index [BMI] 38.0-38.9, adult; O99.281 Endocrine, nutritional and metabolic diseases complicating pregnancy, first trimester; E28.2 Polycystic ovarian syndrome; Z88.5 Allergy status to narcotic agent; F12.90 Cannabis use, unspecified, uncomplicated
CPT/HCPCS: 99285; 96374; 76819; 96375; 96361; 80048; 81001; 84703; 83690; 83735; 85025; 84702; 36415; 93005; 83605; J2765; C9113; J1170; J7040; A4663

== ENCOUNTER → 2022-10-05 | Emergency (ER) | payer SELFPAY ==
[~2022-10-05] VITALS: Ht 165.1 cm; Wt 105.2 kg
[~2022-10-05] MED LIST changes: +ESOM40CA PO; +METO-295 PO; +PANT20TA17 PO; +[UNRECOGNIZED DRUG - CODE] MC; +[UNRECOGNIZED DRUG - CODE] PO
== END | disposition left against medical advice (07) ==
LOC: ER 10:57
DX: Z53.21 Procedure and treatment not carried out due to patient leaving prior to being seen by health care provider (principal)
CPT/HCPCS: A4663

== ENCOUNTER 2022-10-12 03:56 | Emergency (ER) | payer BC ==
[~2022-10-12] VITALS: Ht 165.1 cm; Wt 104.3 kg
[~2022-10-12 03:56] MED LIST changes: -BISM262T27 PO; -DIPH25CA83 PO; -FAMO-132 PO; -METR500T PO; -OMEP20TA20 PO; -PRED20TA PO; -PROC-11 PO; -SACC250C PO; -TETR-66 PO
[2022-10-12] MEDS ORDERED: KETOROLAC TROMETHAMINE 30 MG INJ ONE (04:27)
[2022-10-12] MEDS ORDERED: KETOROLAC TROMETHAMINE 30 MG INJ IM ONE (04:30)
[2022-10-12 04:35] LABS: HEMATOCRIT 37.6 % (31.2-41.9); MEAN CORPUSCULAR HEMOGLOBIN 28.5 uug (24.7-32.8); MEAN CORPUSCULAR VOLUME 84.9 fL (75.5-95.3); PLATELET COUNT (AUTO) 284 K/uL (179-408)
[2022-10-12 04:47] LABS: ALANINE AMINOTRANSFERASE 23 U/L (14-59); ALKALINE PHOSPHATASE 102 U/L (50-136); ASPARTATE AMINOTRANSFERASE 16 U/L (15-37); BILIRUBIN,DIRECT < 0.1 mg/dL (0.0-0.2); BILIRUBIN,TOTAL 0.2 mg/dL (0.2-1.0); CARBON DIOXIDE 24 mmol/L (21-32); CHLORIDE 96 mmol/L (98-107); CREATININE 0.7 mg/dL (0.6-1.3); POTASSIUM 3.9 mmol/L (3.5-5.1); TOTAL PROTEIN, SERUM 7.5 g/dL (6.4-8.2); UREA NITROGEN, BLOOD 13 mg/dL (7-18)
[2022-10-12] MEDS ORDERED: HYDROCODONE/APAP 5-325MG TABLET ONE (04:51)
[2022-10-12 04:57] LABS: GLUCOSE 303 mg/dL (74-106)
[2022-10-12] MEDS ORDERED: HYDROCODONE/APAP 5-325MG TABLET PO ONE (05:00)
[2022-10-12] MEDS ORDERED: HYDROMORPHONE 1 MG/1 ML DISP.SYRIN IM ONE (05:30)
[2022-10-12] MEDS ORDERED: HYDROMORPHONE 1 MG/1 ML DISP.SYRIN ONE (05:31)
[2022-10-12 05:48] VITALS: BP 120/70
== END 2022-10-12 05:52 | disposition home or self-care (01) ==
LOC: ER 03:59
DX: O20.9 Hemorrhage in early pregnancy, unspecified (principal); Z3A.00 Weeks of gestation of pregnancy not specified; F41.9 Anxiety disorder, unspecified; O24.319 Unspecified pre-existing diabetes mellitus in pregnancy, unspecified trimester; O99.280 Endocrine, nutritional and metabolic diseases complicating pregnancy, unspecified trimester; E28.2 Polycystic ovarian syndrome; O09.529 Supervision of elderly multigravida, unspecified trimester; Z88.1 Allergy status to other antibiotic agents; Z88.5 Allergy status to narcotic agent
CPT/HCPCS: 99284; 76856; 80076; 80048; 85025; 86850; 86900; 86901; 84702; 36415; 96372 ×2; J1885; J1170; A4663

== ENCOUNTER 2022-11-15 02:20 | Emergency (ER) | payer BC ==
[~2022-11-15] VITALS: Ht 165.1 cm; Wt 106.6 kg
--- NOTE | 2022-11-15 03:49 | NUR ---
Dr. Blakely at bedside. MSE in progress.
[2022-11-15] MEDS ORDERED: HYDR-3972 PO (03:55)
--- NOTE | 2022-11-15 03:59 | NUR ---
Patient discharged to home in stable condition. A/O x 4. NAD noted. Ambulatroy with a steady gait. All belongings with patient. Written and verbal after care instructions given. Patient verbalizes understanding of instructions. Stressed follow up or return to ER for worsening s/s.
== END 2022-11-15 04:01 | disposition home or self-care (01) ==
LOC: ER 02:25
DX: J06.9 Acute upper respiratory infection, unspecified (principal); B97.89 Other viral agents as the cause of diseases classified elsewhere
CPT/HCPCS: A4663

== ENCOUNTER 2023-10-07 20:57 | Emergency (ER) | payer BC ==
[~2023-10-07] VITALS: Ht 165.1 cm; Wt 100.7 kg
[~2023-10-07 20:57] MED LIST changes: +HYDR-3972 PO
[2023-10-07] MEDS ORDERED: LORAZEPAM 1 MG TABLET ONE (21:24)
[2023-10-07] MEDS ORDERED: LORAZEPAM 0.5 MG TABLET PO ONE (21:30)
[2023-10-07 22:02] LABS: ETHANOL < 3 MG/DL (0-10)
[2023-10-07 22:03] LABS: ACETAMINOPHEN < 2.0 ug/mL (10-30); ALANINE AMINOTRANSFERASE 43 U/L (14-59); ALBUMIN 4.1 g/dL (3.4-5.0); ALKALINE PHOSPHATASE 92 U/L (50-136); ASPARTATE AMINOTRANSFERASE 53 U/L (15-37); BILIRUBIN,DIRECT 0.2 mg/dL (0.0-0.2); BILIRUBIN,TOTAL 1.1 mg/dL (0.2-1.0); CALCIUM 9.3 mg/dL (8.5-10.1); CARBON DIOXIDE 29 mmol/L (21-32); CHLORIDE 96 mmol/L (98-107); CREATININE 0.7 mg/dL (0.6-1.3); GLUCOSE 301 mg/dL (74-106); SODIUM SERUM 135 mmol/L (136-145); TOTAL PROTEIN, SERUM 8.4 g/dL (6.4-8.2); UREA NITROGEN, BLOOD 9 mg/dL (7-18)
[2023-10-07 22:20] LABS: *BILIRUBIN,URIN NEGATIVE (NEGATIVE); *CLARITY,URINE CLEAR (CLEAR); *COLOR,URINE YELLOW (YELLOW); *KETONES,URINE TRACE (NEGATIVE); *PROTEIN,URINE 2+ (NEGATIVE); *UROBILINOGEN,URINE 0.2 E.U./dl (NORMAL); LEUKOCYTE ESTERASE ,URINE NEGATIVE (NEGATIVE); NITRITE, URINE NEGATIVE (NEGATIVE); PH,URINE 5.5 (5.0-8.0); UGLUCOSE TRACE (NEGATIVE)
[2023-10-07] MEDS ORDERED: POTASSIUM BICARBONATE/CIT AC 25 MEQ TABLET.EFF PO ONE (22:30)
[2023-10-07] MEDS ORDERED: POTASSIUM BICARBONATE/CIT AC 25 MEQ TABLET.EFF ONE (22:31)
[2023-10-07 22:33] LABS: *BLOOD, URINE TRACE (NEGATIVE)
[2023-10-07 22:40] LABS: *AMPHETAMINE, URINE NEGATIVE (NEGATIVE); *BARBITURATE, URINE NEGATIVE (NEGATIVE); *BENZODIAZEPINE, URINE POSITIVE (NEGATIVE); *CANNABINOID, URINE POSITIVE (NEGATIVE); *COCCAINE, URINE NEGATIVE (NEGATIVE); *OPIATE, URINE NEGATIVE (NEGATIVE); *PHENCYCLIDINE SCREEN,URINE NEGATIVE (NEGATIVE)
[2023-10-07 22:41] LABS: FENTANYL, URINE NEGATIVE (NEGATIVE)
[2023-10-07 22:50] LABS: *URINE HCG, QUAL NEGATIVE (NEGATIVE)
[2023-10-07 23:01] LABS: BASOPHILS % (AUTO) 0.3 % (0.0-2.0); DIFFERENTIAL COMMENT 0; EOSINOPHILS # (AUTO) 0.1 K/uL (0.0-0.7); EOSINOPHILS % (AUTO) 0.8 % (0.0-7.0); HEMATOCRIT 39.9 % (31.2-41.9); HEMOGLOBIN 13.9 g/dL (10.9-14.3); LYMPHOCYTES # (AUTO) 2.4 K/uL (0.8-4.8); LYMPHOCYTES % (AUTO) 21.2 % (20.5-51.5); MEAN CORPUSCULAR HEMOGLOBIN 29.7 uug (24.7-32.8); MEAN CORPUSCULAR HGB CONC 35 g/dL (32.3-35.6); MEAN CORPUSCULAR VOLUME 85.5 fL (75.5-95.3); MONOCYTES % (AUTO) 9.4 % (0.0-11.0); NEUTROPHILS # (AUTO) 7.6 K/uL (1.8-8.9); NEUTROPHILS % (AUTO) 68.3 % (38.5-71.5); PLATELET COUNT (AUTO) 297 K/uL (179-408); RED BLOOD CELL COUNT(AUTO) 4.66 MIL/uL (3.63-4.92); RED CELL DISTRIBUTION WIDTH 13.5 % (12.3-17.7); WHITE BLOOD COUNT (AUTO) 11.2 K/uL (3.8-11.8)
[2023-10-08 00:13] LABS: BACTERIA,URINE FEW /HPF (NONE SEEN); SQUAMOUS EPITHELIAL CELL,UR MODERATE /HPF (NONE SEEN); WBC,URINE 0-3 /HPF (0-3)
[2023-10-08] MEDS ORDERED: LORAZEPAM 1 MG TABLET ONE ×2 (02:27→06:42)
[2023-10-08] MEDS ORDERED: LORAZEPAM 0.5 MG TABLET PO ONE ×2 (02:30→06:45)
[2023-10-08 06:35] VITALS: O2SAT 95
== END 2023-10-08 07:10 ==
LOC: ER 20:57
DX: R45.851 Suicidal ideations (principal); E11.9 Type 2 diabetes mellitus without complications; F41.9 Anxiety disorder, unspecified; R10.2 Pelvic and perineal pain; Z79.899 Other long term (current) drug therapy; Z20.822 Contact with and (suspected) exposure to COVID-19; Z88.5 Allergy status to narcotic agent; Z88.1 Allergy status to other antibiotic agents
CPT/HCPCS: 36415; 84703; 85025; A4606; A4663; G0480